=== PATIENT | female | born 1955 | race Two or more races ===

== ENCOUNTER 2016-08-29 09:02 | Outpatient (CLI) | payer OTHER ==
[~2016-08-29 09:02] MED LIST: BEVACIZUMAB IV PRN; CARBOPLATIN 750 MG in NORMAL SALINE 250 ML IV PRN; DIPHENHYDRAMINE HCL 50 MG/ML VIAL IV PRN; FAMOTIDINE INJ/PF 20 MG/2 ML SDV IV PRN; NORMAL SALINE 250 ML IV PRN; NORMAL SALINE IV PRN; ONDANSETRON HCL/PF 16 MG, DEXAMETHASONE SOD PHOSPHATE 10 MG in NORMAL SALINE 50 ML IV PRN; PACLITAXEL SEMI SYNTHETIC IV PRN
[2016-08-29 10:44] VITALS: BP 135/80
== END 2016-08-29 16:30 | disposition home or self-care (01) ==
LOC: II 09:02 → 5TH 09:06 → II 16:30
PROVIDERS: ATTEND Specialist
PROC: 3E03305 Introduction of Other Antineoplastic into Peripheral Vein, Percutaneous Approach (ICD-10-PCS; principal; 2016-08-29)
PROC: 3E033GC Introduction of Other Therapeutic Substance into Peripheral Vein, Percutaneous Approach (ICD-10-PCS; 2016-08-29)
DX: Z51.11 Encounter for antineoplastic chemotherapy (principal); D56.1 Beta thalassemia; D70.1 Agranulocytosis secondary to cancer chemotherapy
CPT/HCPCS: 96413; 96415; 96367; 96375; 96417; J1200; J9045; J2405; J7050; J7040; J9267; S0028; J1100; J9035

== ENCOUNTER 2016-08-31 08:57 | Outpatient (CLI) | payer OTHER ==
[~2016-08-31 08:57] MED LIST changes: -BEVACIZUMAB IV PRN; -CARBOPLATIN 750 MG in NORMAL SALINE 250 ML IV PRN; -DIPHENHYDRAMINE HCL 50 MG/ML VIAL IV PRN; -FAMOTIDINE INJ/PF 20 MG/2 ML SDV IV PRN; -NORMAL SALINE 250 ML IV PRN; -NORMAL SALINE IV PRN; -ONDANSETRON HCL/PF 16 MG, DEXAMETHASONE SOD PHOSPHATE 10 MG in NORMAL SALINE 50 ML IV PRN; -PACLITAXEL SEMI SYNTHETIC IV PRN; +PEGFILGRASTIM INJ 6 MG/0.6 ML DISP.SYRIN SUBCUT PRN
== END 2016-08-31 10:00 | disposition home or self-care (01) ==
LOC: II 08:57 → 5TH 08:57 → II 10:00
PROVIDERS: ATTEND Specialist
PROC: 3E0130M Introduction of Antineoplastic, Monoclonal Antibody, into Subcutaneous Tissue, Percutaneous Approach (ICD-10-PCS; principal; 2016-08-31)
DX: Z51.11 Encounter for antineoplastic chemotherapy (principal); D70.1 Agranulocytosis secondary to cancer chemotherapy; D56.1 Beta thalassemia
CPT/HCPCS: 96372; J2505

== ENCOUNTER → 2016-09-14 | Outpatient (CLI) | payer OTHER | LOC: RAD 17:15 | PROVIDERS: ATTEND Specialist | DX: C56.1 Malignant neoplasm of right ovary (principal) | CPT/HCPCS: 78815; A9552 ==

== ENCOUNTER 2016-09-20 09:38 | Outpatient (CLI) | payer OTHER ==
[~2016-09-20 09:38] MED LIST changes: +BEVACIZUMAB IV PRN; +CARBOPLATIN 750 MG in NORMAL SALINE 250 ML IV PRN; +FAMOTIDINE INJ/PF 20 MG/2 ML SDV IV PRN; +NORMAL SALINE 250 ML IV PRN; +NORMAL SALINE IV PRN; +ONDANSETRON HCL/PF 16 MG, DEXAMETHASONE SOD PHOSPHATE 10 MG in NORMAL SALINE 50 ML IV PRN; +PACLITAXEL SEMI SYNTHETIC IV PRN; -PEGFILGRASTIM INJ 6 MG/0.6 ML DISP.SYRIN SUBCUT PRN
[2016-09-20] MEDS: DIPHENHYDRAMINE HCL 50 MG/ML VIAL IV PRN ×2 (11:00→11:04)
[2016-09-20 13:21] VITALS: BP 133/74
== END 2016-09-20 15:43 | disposition home or self-care (01) ==
LOC: II 09:38 → 5TH 09:41 → II 15:43
PROVIDERS: ATTEND Specialist
PROC: 3E04305 Introduction of Other Antineoplastic into Central Vein, Percutaneous Approach (ICD-10-PCS; principal; 2016-09-20)
PROC: 3E043GC Introduction of Other Therapeutic Substance into Central Vein, Percutaneous Approach (ICD-10-PCS; 2016-09-20)
DX: Z51.11 Encounter for antineoplastic chemotherapy (principal); D70.1 Agranulocytosis secondary to cancer chemotherapy; D56.1 Beta thalassemia
CPT/HCPCS: 96413; 96415; 96367; 96375; 96417; J1200; J9045; J2405; J7050; J7040; J9267; S0028; J1100; J9035

== ENCOUNTER 2016-09-21 14:43 | Outpatient (CLI) | payer OTHER ==
[~2016-09-21 14:43] MED LIST changes: -BEVACIZUMAB IV PRN; -CARBOPLATIN 750 MG in NORMAL SALINE 250 ML IV PRN; -FAMOTIDINE INJ/PF 20 MG/2 ML SDV IV PRN; -NORMAL SALINE 250 ML IV PRN; -NORMAL SALINE IV PRN; -ONDANSETRON HCL/PF 16 MG, DEXAMETHASONE SOD PHOSPHATE 10 MG in NORMAL SALINE 50 ML IV PRN; -PACLITAXEL SEMI SYNTHETIC IV PRN; +PEGFILGRASTIM INJ 6 MG/0.6 ML DISP.SYRIN SUBCUT PRN
== END 2016-09-21 15:08 | disposition home or self-care (01) ==
LOC: II 14:43 → 5TH 14:46 → II 15:08
PROVIDERS: ATTEND Specialist
PROC: 3E0130M Introduction of Antineoplastic, Monoclonal Antibody, into Subcutaneous Tissue, Percutaneous Approach (ICD-10-PCS; principal; 2016-09-21)
DX: Z51.11 Encounter for antineoplastic chemotherapy (principal); D70.1 Agranulocytosis secondary to cancer chemotherapy; D56.1 Beta thalassemia
CPT/HCPCS: 96372; J2505

== ENCOUNTER 2016-10-11 08:59 | Outpatient (CLI) | payer OTHER ==
[~2016-10-11 08:59] MED LIST changes: +BEVACIZUMAB IV PRN; +CARBOPLATIN 750 MG in NORMAL SALINE 250 ML IV PRN; +DIPHENHYDRAMINE HCL 50 MG/ML VIAL IV PRN; +FAMOTIDINE INJ/PF 20 MG/2 ML SDV IV PRN; +NORMAL SALINE 250 ML IV PRN; +NORMAL SALINE IV PRN; +ONDANSETRON HCL/PF 16 MG, DEXAMETHASONE SOD PHOSPHATE 10 MG in NORMAL SALINE 50 ML IV PRN; +PACLITAXEL SEMI SYNTHETIC IV PRN; -PEGFILGRASTIM INJ 6 MG/0.6 ML DISP.SYRIN SUBCUT PRN
[2016-10-11 09:31] VITALS: BP 116/65
== END 2016-10-11 15:21 | disposition home or self-care (01) ==
LOC: II 08:59 → 5TH 09:00 → II 15:21
PROVIDERS: ATTEND Specialist
DX: Z51.11 Encounter for antineoplastic chemotherapy (principal); D56.1 Beta thalassemia; D70.1 Agranulocytosis secondary to cancer chemotherapy
CPT/HCPCS: 96413; 96415; 96367; 96375; J1200; J9045; J2405; J7050; J7040; J9267; S0028; J1100; J9035

== ENCOUNTER 2016-10-12 14:31 | Outpatient (CLI) | payer OTHER ==
[~2016-10-12 14:31] MED LIST changes: -BEVACIZUMAB IV PRN; -CARBOPLATIN 750 MG in NORMAL SALINE 250 ML IV PRN; -DIPHENHYDRAMINE HCL 50 MG/ML VIAL IV PRN; -FAMOTIDINE INJ/PF 20 MG/2 ML SDV IV PRN; -NORMAL SALINE 250 ML IV PRN; -NORMAL SALINE IV PRN; -ONDANSETRON HCL/PF 16 MG, DEXAMETHASONE SOD PHOSPHATE 10 MG in NORMAL SALINE 50 ML IV PRN; -PACLITAXEL SEMI SYNTHETIC IV PRN; +PEGFILGRASTIM INJ 6 MG/0.6 ML DISP.SYRIN SUBCUT PRN
== END 2016-10-12 14:46 | disposition home or self-care (01) ==
LOC: II 14:31 → 5TH 14:33 → II 14:46
PROVIDERS: ATTEND Specialist
PROC: 3E023GC Introduction of Other Therapeutic Substance into Muscle, Percutaneous Approach (ICD-10-PCS; principal; 2016-10-12)
DX: D56.1 Beta thalassemia (principal); Z51.11 Encounter for antineoplastic chemotherapy; D70.1 Agranulocytosis secondary to cancer chemotherapy
CPT/HCPCS: 96372; J2505

== ENCOUNTER → 2016-10-16 | Outpatient (CLI) | payer OTHER | LOC: RAD 09:55 | PROVIDERS: ATTEND Specialist | DX: C56.1 Malignant neoplasm of right ovary (principal) | CPT/HCPCS: 71260; 74177 ==

== ENCOUNTER 2016-11-02 13:56 | Outpatient (CLI) | payer OTHER | END 2016-11-02 14:17 | disposition home or self-care (01) | LOC: II 13:56 → 5TH 14:08 → II 14:17 | PROVIDERS: ATTEND Specialist | PROC: 3E023GC Introduction of Other Therapeutic Substance into Muscle, Percutaneous Approach (ICD-10-PCS; principal; 2016-11-02) | DX: D56.1 Beta thalassemia (principal); Z51.11 Encounter for antineoplastic chemotherapy; D70.1 Agranulocytosis secondary to cancer chemotherapy | CPT/HCPCS: 96372; J2505 ==

== ENCOUNTER 2016-11-22 09:14 | Outpatient (CLI) | payer OTHER ==
[~2016-11-22 09:14] MED LIST changes: +BEVACIZUMAB IV PRN; +CARBOPLATIN 750 MG in NORMAL SALINE 250 ML IV PRN; +DIPHENHYDRAMINE HCL 50 MG/ML VIAL IV PRN; +FAMOTIDINE INJ/PF 20 MG/2 ML SDV IV PRN; +NORMAL SALINE 250 ML IV PRN; +NORMAL SALINE IV PRN; +ONDANSETRON HCL/PF 16 MG, DEXAMETHASONE SOD PHOSPHATE 10 MG in NORMAL SALINE 50 ML IV PRN; +PACLITAXEL SEMI SYNTHETIC IV PRN; -PEGFILGRASTIM INJ 6 MG/0.6 ML DISP.SYRIN SUBCUT PRN
[2016-11-22 11:08] VITALS: BP 105/66
== END 2016-11-22 14:50 | disposition home or self-care (01) ==
LOC: II 09:14 → 5TH 09:18 → II 14:50
PROVIDERS: ATTEND Specialist
PROC: 3E04305 Introduction of Other Antineoplastic into Central Vein, Percutaneous Approach (ICD-10-PCS; principal; 2016-11-22)
PROC: 3E043GC Introduction of Other Therapeutic Substance into Central Vein, Percutaneous Approach (ICD-10-PCS; 2016-11-22)
DX: D56.1 Beta thalassemia (principal); Z51.11 Encounter for antineoplastic chemotherapy; D70.1 Agranulocytosis secondary to cancer chemotherapy
CPT/HCPCS: 96413; 96367; 96375; 96417; J1200; J9045; J2405; J7050; J7040; J9267; S0028; J1100; J9035; 96415

== ENCOUNTER 2016-11-23 14:29 | Outpatient (CLI) | payer OTHER ==
[~2016-11-23 14:29] MED LIST changes: -BEVACIZUMAB IV PRN; -CARBOPLATIN 750 MG in NORMAL SALINE 250 ML IV PRN; -DIPHENHYDRAMINE HCL 50 MG/ML VIAL IV PRN; -FAMOTIDINE INJ/PF 20 MG/2 ML SDV IV PRN; -NORMAL SALINE 250 ML IV PRN; -NORMAL SALINE IV PRN; -ONDANSETRON HCL/PF 16 MG, DEXAMETHASONE SOD PHOSPHATE 10 MG in NORMAL SALINE 50 ML IV PRN; -PACLITAXEL SEMI SYNTHETIC IV PRN; +PEGFILGRASTIM INJ 6 MG/0.6 ML DISP.SYRIN SUBCUT PRN
== END 2016-11-23 15:12 | disposition home or self-care (01) ==
LOC: II 14:29 → 5TH 14:38 → II 15:12
PROVIDERS: ATTEND Specialist
PROC: 3E023GC Introduction of Other Therapeutic Substance into Muscle, Percutaneous Approach (ICD-10-PCS; principal; 2016-11-23)
DX: D56.1 Beta thalassemia (principal); Z51.11 Encounter for antineoplastic chemotherapy; D70.1 Agranulocytosis secondary to cancer chemotherapy
CPT/HCPCS: 96372; J2505

== ENCOUNTER → 2016-12-07 | Outpatient (CLI) | payer OTHER | LOC: OD 14:35 | PROVIDERS: ATTEND Specialist | DX: C56.1 Malignant neoplasm of right ovary (principal) | CPT/HCPCS: 87040 ==

== ENCOUNTER 2016-12-13 09:14 | Outpatient (CLI) | payer OTHER ==
[~2016-12-13 09:14] MED LIST changes: +BEVACIZUMAB IV PRN; +CARBOPLATIN 750 MG in NORMAL SALINE 250 ML IV PRN; +DIPHENHYDRAMINE HCL 50 MG/ML VIAL IV PRN; +FAMOTIDINE INJ/PF 20 MG/2 ML SDV IV PRN; +NORMAL SALINE 250 ML IV PRN; +NORMAL SALINE IV PRN; +ONDANSETRON HCL/PF 16 MG, DEXAMETHASONE SOD PHOSPHATE 10 MG in NORMAL SALINE 50 ML IV PRN; +PACLITAXEL SEMI SYNTHETIC IV PRN; -PEGFILGRASTIM INJ 6 MG/0.6 ML DISP.SYRIN SUBCUT PRN
[2016-12-13 09:54] VITALS: BP 108/65
== END 2016-12-13 16:26 | disposition home or self-care (01) ==
LOC: II 09:14 → 5TH 09:15 → II 16:26
PROVIDERS: ATTEND Specialist
PROC: 3E04305 Introduction of Other Antineoplastic into Central Vein, Percutaneous Approach (ICD-10-PCS; principal; 2016-12-13)
PROC: 3E043GC Introduction of Other Therapeutic Substance into Central Vein, Percutaneous Approach (ICD-10-PCS; 2016-12-13)
PROC: 3E0430M Introduction of Antineoplastic, Monoclonal Antibody, into Central Vein, Percutaneous Approach (ICD-10-PCS; 2016-12-13)
DX: Z51.11 Encounter for antineoplastic chemotherapy (principal); D56.1 Beta thalassemia; D70.1 Agranulocytosis secondary to cancer chemotherapy
CPT/HCPCS: 96413; 96415; 96367; 96375; 96417; J1200; J9045; J2405; J7050; J7040; J9267; S0028; J1100; J9035

== ENCOUNTER → 2016-12-30 | Outpatient (CLI) | payer OTHER | LOC: RAD 17:36 | PROVIDERS: ATTEND Specialist | DX: C56.1 Malignant neoplasm of right ovary (principal) | CPT/HCPCS: 78815; A9552 ==

== ENCOUNTER 2017-01-18 08:42 | Outpatient (CLI) | payer OTHER ==
[~2017-01-18 08:42] MED LIST changes: -CARBOPLATIN 750 MG in NORMAL SALINE 250 ML IV PRN; +[UNRECOGNIZED DRUG - OTHER] IV PRN
[2017-01-18 09:10] VITALS: BP 122/80
== END 2017-01-18 14:02 | disposition home or self-care (01) ==
LOC: II 08:42 → 5TH 08:47 → II 14:02
PROVIDERS: ATTEND Specialist
PROC: 3E04305 Introduction of Other Antineoplastic into Central Vein, Percutaneous Approach (ICD-10-PCS; principal; 2017-01-18)
PROC: 3E0430M Introduction of Antineoplastic, Monoclonal Antibody, into Central Vein, Percutaneous Approach (ICD-10-PCS; 2017-01-18)
PROC: 3E043GC Introduction of Other Therapeutic Substance into Central Vein, Percutaneous Approach (ICD-10-PCS; 2017-01-18)
DX: Z51.11 Encounter for antineoplastic chemotherapy (principal); C56.1 Malignant neoplasm of right ovary
CPT/HCPCS: 96413; 96415; 96367; 96375; 96361; 96417; J9267 ×2; J1200; J2405; J7040; S0028; J1100; J9035; 96360

== ENCOUNTER 2017-02-15 09:39 | Outpatient (CLI) | payer OTHER ==
[~2017-02-15 09:39] MED LIST changes: +RANITIDINE 50 MG/2 ML IV PRN
[2017-02-15 09:59] VITALS: BP 112/68
== END 2017-02-15 14:28 | disposition home or self-care (01) ==
LOC: II 09:39 → 5TH 09:54 → II 14:28
PROVIDERS: ATTEND Specialist
PROC: 3E0430M Introduction of Antineoplastic, Monoclonal Antibody, into Central Vein, Percutaneous Approach (ICD-10-PCS; principal; 2017-02-15)
PROC: 3E043GC Introduction of Other Therapeutic Substance into Central Vein, Percutaneous Approach (ICD-10-PCS; 2017-02-15)
PROC: 3E04305 Introduction of Other Antineoplastic into Central Vein, Percutaneous Approach (ICD-10-PCS; 2017-02-15)
DX: Z51.11 Encounter for antineoplastic chemotherapy (principal); C56.1 Malignant neoplasm of right ovary
CPT/HCPCS: 96413; 96415; 96367; 96375; J9267 ×2; J1200; J2405; J7040; S0028; J1100; J9035; 96417

== ENCOUNTER 2017-03-15 11:06 | Outpatient (CLI) | payer OTHER ==
[~2017-03-15 11:06] MED LIST changes: -RANITIDINE 50 MG/2 ML IV PRN; -[UNRECOGNIZED DRUG - OTHER] IV PRN
[2017-03-15 11:38] VITALS: BP 133/82
== END 2017-03-15 15:05 | disposition home or self-care (01) ==
LOC: II 11:06 → 5TH 11:07 → II 15:05
PROVIDERS: ATTEND Internal Medicine
PROC: 3E0430M Introduction of Antineoplastic, Monoclonal Antibody, into Central Vein, Percutaneous Approach (ICD-10-PCS; principal; 2017-03-15)
PROC: 3E04305 Introduction of Other Antineoplastic into Central Vein, Percutaneous Approach (ICD-10-PCS; 2017-03-15)
PROC: 3E043GC Introduction of Other Therapeutic Substance into Central Vein, Percutaneous Approach (ICD-10-PCS; 2017-03-15)
DX: Z51.11 Encounter for antineoplastic chemotherapy (principal); C56.1 Malignant neoplasm of right ovary
CPT/HCPCS: 96413; 96415; 96367; 96375; J1200; J2405; J7040; J9267; S0028; J1100; J9035; 96417

== ENCOUNTER → 2017-04-05 | Outpatient (CLI) | payer OTHER ==
--- NOTE | 2017-04-05 14:18 | RADIOLOGY REPORT (SQ) ---
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 Images reviewed with lung, soft tissue and bone windows. Reconstructed coronal and sagittal MPR images reviewed. All images stored on PACS. All CT scanners at this facility use dose modulation, iterative reconstruction, and/or weight based d osing when appropriate to reduce radiation dose to as low as reasonably achievable (ALARA). [facility]: Dose Right [facility]: CareDose [facility]: Dose Right [facility]: Teradose 4D [facility]: [employer] CONTRAST TYPE AND DOSE: contrast/concentration: Isovue 370.00 mg/ml; Total Contrast Delivered: 79.0 ml; Total Saline Delivered: 68.0 ml RENAL FUNCTION: BUN 15, creatinine 0.67 RADIATION DOSE: . LIMITATIONS: None. FINDINGS: LUNGS AND PLEURA: No consolidation or pleural effusions. There is a single 2.9 mm nodule in the left lower lobe. This is new from 2015. The was possibly obscured by the pleural effusion on CT performed in September. Metastatic disease is most likely. HILAR AND MEDIASTINAL STRUCTURES: Prominent paraesophageal node is present this is increased in size from prior study it measures 3.4 cm in diameter. It appears similar to the study in July 2016. HEART AND VASCULAR STRUCTURES: No aneurysm or dissection. No central pulmonary emboli. No pericardi al effusion. HARDWARE: Febkkv-A-Fyft is in place. UPPER ABDOMEN: There is a large peritoneal implant now noted in the left mid abdomen. This measures 4.9 cm in diameter. There are 2 lesions along the right lobe of the liver which have increased in si ze from most recent study. THYROID AND OTHER SOFT TISSUES: No masses. No adenopathy. BONES: No significant finding. OTHER: No other significant finding. IMPRESSION: 1. 2.9 mm nodule in the left lower lobe suspicious for metastatic disease. 2. There is a 3.4 cm periesophageal node which is increased in size from prior study. It is similar appearance to the exam done in July 2016. 3. The perihepatic peroneal implants are increasing in size. TECHNICAL DOCUMENTATION: JOB ID: [id number] Quality ID # 436: Final reports with documentation of one or more dose reduction techniques (e.g., Au tomated exposure control, adjustment of the mA and/or kV according to patient size, use of iterative reconstruction technique) 2010 [employer]- All Rights Reserved
--- NOTE | 2017-04-05 14:23 | RADIOLOGY REPORT (SQ) ---
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 No oral contrast. Images reviewed with lung, soft tissue, and bone windows. Reconstructed coronal and sagittal MPR images reviewed. Delayed images for evaluation of the urinary system also acquired. All images stored on PACS. All CT scanners at this facility use dose modulation, iterative reconstruction, and/or weight based d osing when appropriate to reduce radiation dose to as low as reasonably achievable (ALARA). [facility]: Dose Right [facility]: CareDose [facility]: Dose Right [facility]: Teradose 4D [facility]: [employer] CONTRAST TYPE AND DOSE: 79 mL Isovue 370 RENAL FUNCTION: BUN 15, creatinine 0.67 RADIATION DOSE: Up-to-date CT equipment and radiation dose reduction techniques were employed. CTDIv ol: 5.9 - 7.9 mGy. DLP: 1069 mGy-cm.. LIMITATIONS: None. FINDINGS: LOWER CHEST: Small pulmonary nodules again noted metastatic disease cannot be excluded. T his measures 2.9 mm in size. LIVER: The perihepatic lesions along the right lobe have slightly increased in size. SPLEEN: Normal size. No focal lesions. PANCREAS: No masses. No significant calcifications. No adjacent inflammation or peripancreatic fluid collections. Pancreatic duct not dilated. GALLBLADDER: No identified stones by CT criteria. No inflammatory changes to suggest cholecystitis. ADRENAL GLANDS: No significant masses or asymmetry. RIGHT KIDNEY AND URETER: No solid masses. No significant calcifications. No hydronephrosis or hyd roureter. LEFT KIDNEY AND URETER: No solid masses. No significant calcifications. No hydronephrosis or hydr oureter. AORTA AND VESSELS: No aneurysm. No dissection. Renal arteries, SMA, celiac without stenosis. RETROPERITONEUM: There are small periaortic and retroperitoneal nodes. None are pathologic based on size criteria. BOWEL AND PERITONEAL CAVITY: There is a 4.9 cm peritoneal implant in the left mid abdomen. This is s ignificantly increased in size from prior study. The perineum planned along the inferior margin the liver is grossly stable in size. APPENDIX: Not visualized. PELVIS: Complex multiloculated mass in the pelvis is measured 10.7 by 9.5 cm in size this is grossly stable. There is a 2 cm mass in the left lower quadrant which is increased in size since prior study and probably represents peritoneal implant. ABDOMINAL WALL: No masses. No hernias. BONES: No significant or acute findings. OTHER: No other significant finding. IMPRESSION: Increasing peritoneal implants as described. The large complex pelvic mass is grossly s table in size. TECHNICAL DOCUMENTATION: JOB ID: [id number] Quality ID # 436: Final reports with documentation of one or more dose reduction techniques (e.g., Au tomated exposure control, adjustment of the mA and/or kV according to patient size, use of iterative reconstruction technique) 2010 [employer]- All Rights Reserved
== END ==
LOC: RAD 12:51
PROVIDERS: ATTEND Internal Medicine
DX: C56.1 Malignant neoplasm of right ovary (principal); R91.1 Solitary pulmonary nodule
CPT/HCPCS: 71260; 74177

== ENCOUNTER → 2017-04-18 | Outpatient (CLI) | payer SELFPAY ==
--- NOTE | 2017-04-18 19:27 | XCELERA REPORT ---
[address] [address] Transthoracic Echocardiogram Report Name: NAURADHA DARLING Age: 61 yrs Gender: Female : 1955 Patient Status: Outpatient Patient Location: Study Date: 04/18/2017 02:12 PM Height: 61 in Weight: 160 lb BSA: 1.7 m2 Procedure: A complete two-dimensional transthoracic echocardiogram was performed (2D, M-mode, spectral and color flow Doppler). The study was technically difficult with many images being suboptimal in quality. Reason For Study: ANTINEOPLASTIC CHEMOTHERAPY Ordering Physician: ARLEEN GARZA Performed By: Ermelinda Cedeno Interpretation Summary The study was technically difficult with many images being suboptimal in quality. The left ventricular ejection fraction is normal. There is normal left ventricular wall thickness. The left ventricle is grossly normal size. Doppler measurements suggest impaired left ventricular relaxation, which is associated with grade I/IV or mild diastolic dysfunction Wall motion cannot be accurately commented on, but no definite regional wall motion abnormalities noted. The right ventricle appears to be hypertrophied The right ventricle is mild to moderately dilated. The left atrial size is normal. The right atrium is normal in size There is a trace amount of mitral regurgitation There is no mitral valve stenosis. No aortic regurgitation is present. There is no aortic valve stenosis There is a trace or physiologic amount of tricuspid regurgitation Tricuspid regurgitation jet envelope not well defined to measure RV systolic pressure accurately. The aortic root is not well visualized. The inferior vena cava appeared normal and decreased < 50% with respiration (RAP 10-15 mmHg) There is no pericardial effusion. MMode/2D Measurements & Calculations RVDd: 3.8 cm LVIDd: 5.7 cm FS: 34.2 % Ao root diam: 2.8 cm IVSd: 0.50 cm LVIDs: 3.7 cm EDV(Teich): 158.0 ml LVPWd: 0.54 cm ESV(Teich): 59.3 ml Ao root area: 6.2 cm2 EF(Teich): 62.5 % Doppler Measurements & Calculations MV E max almaz: MV dec slope: Ao V2 max: LV V1 max P.5 cm/sec 153.7 cm/sec 3.8 mmHg MV A max almaz: 246.3 cm/sec2 Ao max PG: LV V1 max: 69.9 cm/sec MV dec time: 9.5 mmHg 97.5 cm/sec MV E/A: 0.87 0.25 sec PA V2 max: PI end-d almaz: 75.0 cm/sec 110.0 cm/sec PA max P.3 mmHg Left Ventricle The left ventricle is grossly normal size. There is normal left ventricular wall thickness. The left ventricular ejection fraction is normal. Doppler measurements suggest impaired left ventricular relaxation, which is associated with grade I/IV or mild diastolic dysfunction. Wall motion cannot be accurately commented on, but no definite regional wall motion abnormalities noted. Right Ventricle The right ventricle is mild to moderately dilated. The right ventricle appears to be hypertrophied. The right ventricular systolic function is normal. Atria The right atrium is normal in size. The left atrial size is normal. Interarterial septum not well visualized and not well dopplered. Cannot comment on ASD/PFO presence. Mitral Valve The mitral valve is grossly normal. There is no mitral valve stenosis. There is a trace amount of mitral regurgitation. Aortic Valve The aortic valve is grossly normal. There is no aortic valve stenosis. No aortic regurgitation is present. Tricuspid Valve The tricuspid valve is not well visualized secondary to technical limitations. There is no tricuspid stenosis. There is a trace or physiologic amount of tricuspid regurgitation. Tricuspid regurgitation jet envelope not well defined to measure RV systolic pressure accurately. Pulmonic Valve The pulmonic valve is not well visualized. Great Vessels The aortic root is not well visualized. The inferior vena cava appeared normal and decreased < 50% with respiration (RAP 10-15 mmHg). Effusions There is no pericardial effusion. : ARLEEN GARZA > Noah Spangler
== END ==
LOC: SP 14:06
PROVIDERS: ATTEND Internal Medicine
DX: Z51.11 Encounter for antineoplastic chemotherapy (principal)
CPT/HCPCS: 93306

== ENCOUNTER 2017-04-26 09:19 | Outpatient (CLI) | payer OTHER ==
[~2017-04-26 09:19] MED LIST changes: -BEVACIZUMAB IV PRN; +DEXTROSE 5% IV PRN; +DEXTROSE 5%-WATER 250 ML IV PRN; -DIPHENHYDRAMINE HCL 50 MG/ML VIAL IV PRN; -FAMOTIDINE INJ/PF 20 MG/2 ML SDV IV PRN; +FOSAPREPITANT DIMEGLUMINE 150 MG in NORMAL SALINE 150 ML IV PRN; -NORMAL SALINE 250 ML IV PRN; -NORMAL SALINE IV PRN; -PACLITAXEL SEMI SYNTHETIC IV PRN; +WATER IV PRN; +[UNRECOGNIZED DRUG - OTHER] IV PRN
[2017-04-26 09:36] VITALS: BP 104/62
== END 2017-04-26 12:15 | disposition home or self-care (01) ==
LOC: II 09:19 → 5TH 09:23 → II 12:15
PROVIDERS: ATTEND Internal Medicine
PROC: 3E04305 Introduction of Other Antineoplastic into Central Vein, Percutaneous Approach (ICD-10-PCS; principal; 2017-04-26)
PROC: 3E043GC Introduction of Other Therapeutic Substance into Central Vein, Percutaneous Approach (ICD-10-PCS; 2017-04-26)
DX: Z51.11 Encounter for antineoplastic chemotherapy (principal); C56.1 Malignant neoplasm of right ovary
CPT/HCPCS: 96413; 96365; 96366; 96523; J2405; J7060; J1100; J1453; Q2050; 96367

== ENCOUNTER 2017-05-03 09:30 | Outpatient (CLI) | payer OTHER ==
[2017-05-03 10:24] VITALS: BP 112/76
== END 2017-05-03 12:17 | disposition home or self-care (01) ==
LOC: II 09:30 → 5TH 09:31 → II 12:17
PROVIDERS: ATTEND Internal Medicine
PROC: 3E04305 Introduction of Other Antineoplastic into Central Vein, Percutaneous Approach (ICD-10-PCS; principal; 2017-05-03)
PROC: 3E043GC Introduction of Other Therapeutic Substance into Central Vein, Percutaneous Approach (ICD-10-PCS; 2017-05-03)
DX: Z51.11 Encounter for antineoplastic chemotherapy (principal); C56.1 Malignant neoplasm of right ovary
CPT/HCPCS: 96413; 96367; 96375; J2405; J7060; J1100; J1453; Q2050; 96365; 96523

== ENCOUNTER 2017-05-17 11:27 | Outpatient (CLI) | payer OTHER ==
[~2017-05-17 11:27] MED LIST changes: +BEVACIZUMAB IV PRN; -DEXTROSE 5%-WATER 250 ML IV PRN; +NORMAL SALINE 250 ML IV PRN; +NORMAL SALINE IV PRN
[2017-05-17 11:46] VITALS: BP 118/70
[2017-05-17] MEDS: DEXTROSE 5%-WATER 250 ML IV PRN ×2 (12:13→13:03)
== END 2017-05-17 14:28 | disposition home or self-care (01) ==
LOC: II 11:27 → 5TH 11:35 → II 14:28
PROVIDERS: ATTEND Internal Medicine
PROC: 3E0430M Introduction of Antineoplastic, Monoclonal Antibody, into Central Vein, Percutaneous Approach (ICD-10-PCS; principal; 2017-05-17)
PROC: 3E04305 Introduction of Other Antineoplastic into Central Vein, Percutaneous Approach (ICD-10-PCS; 2017-05-17)
PROC: 3E043GC Introduction of Other Therapeutic Substance into Central Vein, Percutaneous Approach (ICD-10-PCS; 2017-05-17)
DX: Z51.11 Encounter for antineoplastic chemotherapy (principal); C56.1 Malignant neoplasm of right ovary
CPT/HCPCS: 96413; 96415; 96367; 96375; J2405; J7060; J1100; J9035; J1453; Q2050; 96417

== ENCOUNTER 2017-05-24 08:06 | Outpatient (CLI) | payer OTHER ==
[~2017-05-24 08:06] MED LIST changes: -BEVACIZUMAB IV PRN; +DEXTROSE 5%-WATER 250 ML IV PRN; -NORMAL SALINE 250 ML IV PRN; -NORMAL SALINE IV PRN
[2017-05-24 09:00] VITALS: BP 126/64
[2017-05-24 09:03] LABS: ABSOLUTE MONOCYTES (AUTO) 0.1 10^3/uL (0.1-1.4); HEMATOCRIT 32.1 % (36.0-47.0); HEMOGLOBIN 10.9 g/dL (12.0-15.5); HGB HCT DIFFERENCE 0.6; LYMPHOCYTES % (AUTO) 19.1 % (13-45); MEAN CORPUSCULAR HGB CONC 33.8 g/dL (32.0-36.0); MEAN CORPUSCULAR VOLUME 83 fl (80-97); MONOCYTES % (AUTO) 1.7 % (3-13); RED BLOOD COUNT 3.88 10^6/uL (3.72-5.28); RED CELL DISTRIBUTION WIDTH 16.9 % (11.5-14.0); SEGMENTED NEUTROPHILS % (AUTO) 79.2 % (42-78); WHITE BLOOD COUNT 5.1 10^3/uL (4.0-10.5)
== END 2017-05-24 12:10 | disposition home or self-care (01) ==
LOC: II 08:06 → 5TH 08:24 → II 12:10
PROVIDERS: ATTEND Internal Medicine
PROC: 3E04305 Introduction of Other Antineoplastic into Central Vein, Percutaneous Approach (ICD-10-PCS; principal; 2017-05-24)
PROC: 3E043GC Introduction of Other Therapeutic Substance into Central Vein, Percutaneous Approach (ICD-10-PCS; 2017-05-24)
DX: Z51.11 Encounter for antineoplastic chemotherapy (principal); C56.1 Malignant neoplasm of right ovary
CPT/HCPCS: 96413; 96367; 96375; 36415; 85025; J2405; J7060; J1100; J1453; Q2050

== ENCOUNTER 2017-05-31 08:01 | Outpatient (CLI) | payer OTHER ==
[2017-05-31 08:24] VITALS: BP 125/75
[2017-05-31 08:45] LABS: ABSOLUTE LYMPHOCYTES (AUTO) 0.9 10^3/uL (0.5-4.7); ABSOLUTE MONOCYTES (AUTO) 0.1 10^3/uL (0.1-1.4); ABSOLUTE NEUT (AUTO) 5.6 10^3/uL (1.7-8.2); BASOPHILS % (AUTO) 0.1 % (0-2); HEMATOCRIT 31.5 % (36.0-47.0); HEMOGLOBIN 10.5 g/dL (12.0-15.5); LYMPHOCYTES % (AUTO) 13.2 % (13-45); MEAN CORPUSCULAR HEMOGLOBIN 27.7 pg (27.0-33.4); MEAN CORPUSCULAR HGB CONC 33.5 g/dL (32.0-36.0); MEAN CORPUSCULAR VOLUME 83 fl (80-97); MONOCYTES % (AUTO) 1.1 % (3-13); RED BLOOD COUNT 3.81 10^6/uL (3.72-5.28); RED CELL DISTRIBUTION WIDTH 17.6 % (11.5-14.0); SEGMENTED NEUTROPHILS % (AUTO) 85.6 % (42-78); WHITE BLOOD COUNT 6.6 10^3/uL (4.0-10.5)
== END 2017-05-31 11:30 | disposition home or self-care (01) ==
LOC: II 08:01 → 5TH 08:02 → II 11:30
PROVIDERS: ATTEND Internal Medicine Hematology & Oncology
PROC: 3E04305 Introduction of Other Antineoplastic into Central Vein, Percutaneous Approach (ICD-10-PCS; principal; 2017-05-31)
PROC: 3E043GC Introduction of Other Therapeutic Substance into Central Vein, Percutaneous Approach (ICD-10-PCS; 2017-05-31)
DX: Z51.11 Encounter for antineoplastic chemotherapy (principal); C56.1 Malignant neoplasm of right ovary; N83.8 Other noninflammatory disorders of ovary, fallopian tube and broad ligament; G89.3 Neoplasm related pain (acute) (chronic)
CPT/HCPCS: 36415; 85025; 96413; 96367; 96523; J2405; J7060; J1100; J1453; Q2050

== ENCOUNTER 2017-06-14 11:02 | Outpatient (CLI) | payer OTHER ==
[~2017-06-14 11:02] MED LIST changes: +BEVACIZUMAB IV PRN; +NORMAL SALINE 250 ML IV PRN; +NORMAL SALINE IV PRN; +[UNRECOGNIZED DRUG - OTHER] IV PRN
[2017-06-14 11:25] VITALS: BP 113/65
[2017-06-14 12:20] LABS: APPEARANCE,URINE CLOUDY; BILIRUBIN,URINE NEGATIVE (NEGATIVE); GLUCOSE, URINE NEGATIVE (NEGATIVE); KETONES,URINE NEGATIVE (NEGATIVE); LEUKOCYTE ESTERASE,URINE SMALL (NEGATIVE); NITRITE,URINE NEGATIVE (NEGATIVE); PROTEIN,URINE NEGATIVE (NEGATIVE); URINE SPECIFIC GRAVITY 1.023
== END 2017-06-14 14:35 | disposition home or self-care (01) ==
LOC: II 11:02 → 5TH 11:05 → II 14:35
PROVIDERS: ATTEND Internal Medicine
PROC: 3E0430M Introduction of Antineoplastic, Monoclonal Antibody, into Central Vein, Percutaneous Approach (ICD-10-PCS; principal; 2017-06-14)
PROC: 3E04305 Introduction of Other Antineoplastic into Central Vein, Percutaneous Approach (ICD-10-PCS; 2017-06-14)
PROC: 3E043GC Introduction of Other Therapeutic Substance into Central Vein, Percutaneous Approach (ICD-10-PCS; 2017-06-14)
DX: Z51.11 Encounter for antineoplastic chemotherapy (principal); C56.1 Malignant neoplasm of right ovary
CPT/HCPCS: 81001; 96413; 96415; 96367; 96375; J2405; J7060; J1100; J9035; J1453; Q2050; 96417

== ENCOUNTER → 2017-07-08 | Outpatient (CLI) | payer OTHER ==
--- NOTE | 2017-07-08 12:06 | RADIOLOGY REPORT (SQ) ---
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 Images reviewed with lung, soft tissue and bone windows. Reconstructed coronal and sagittal MPR images reviewed. All images stored on PACS. All CT scanners at this facility use dose modulation, iterative reconstruction, and/or weight based d osing when appropriate to reduce radiation dose to as low as reasonably achievable (ALARA). [facility]: Dose Right [facility]: CareDose [facility]: Dose Right [facility]: Teradose 4D [facility]: [employer] CONTRAST TYPE AND DOSE: See separate report of the same date. RENAL FUNCTION: See separate report of the same date. RADIATION DOSE: . LIMITATIONS: None. FINDINGS: LUNGS AND PLEURA: Tiny 2 mm nodule in the left lower lobe on image 108. No new nodules. No effusions. HILAR AND MEDIASTINAL STRUCTURES: 3 cm lesion between the esophagus and the left ventricle measures - 11 HU, does not enhance, and was not hypermetabolic on the PET in December 2016. 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 HEART AND VASCULAR STRUCTURES: No aneurysm or dissection. No central pulmonary emboli. No pericardi al effusion. HARDWARE: Right-sided port with tip in the SVC. UPPER ABDOMEN: See separate report of the CT of the abdomen. THYROID AND OTHER SOFT TISSUES: No masses. No adenopathy. BONES: No significant finding. OTHER: No other significant finding. IMPRESSION: Stable appearance of the chest. TECHNICAL DOCUMENTATION: JOB ID: [id number] Quality ID # 436: Final reports with documentation of one or more dose reduction techniques (e.g., Au tomated exposure control, adjustment of the mA and/or kV according to patient size, use of iterative reconstruction technique) 2010 [employer]- All Rights Reserved
--- NOTE | 2017-07-08 12:11 | RADIOLOGY REPORT (SQ) ---
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 No oral contrast. Images reviewed with lung, soft tissue, and bone windows. Reconstructed coronal and sagittal MPR images reviewed. Delayed images for evaluation of the urinary system also acquired. All images stored on PACS. All CT scanners at this facility use dose modulation, iterative reconstruction, and/or weight based d osing when appropriate to reduce radiation dose to as low as reasonably achievable (ALARA). [facility]: Dose Right [facility]: CareDose [facility]: Dose Right [facility]: Teradose 4D [facility]: [employer] CONTRAST TYPE AND DOSE: contrast/concentration: Isovue 370.00 mg/ml; Total Contrast Delivered: 74.0 ml; Total Saline Delivered: 66.0 ml RENAL FUNCTION: BUN 11 creatinine 0.6 RADIATION DOSE: Up-to-date CT equipment and radiation dose reduction techniques were employed. CTDIv ol: 5.2 - 7.4 mGy. DLP: 991 mGy-cm.. LIMITATIONS: None. FINDINGS: LOWER CHEST: See separate report of the CT of the chest. LIVER: Peritoneal implants surrounding the liver capsule subdiaphragmatic and around the medial segme nt of the left lobe are not significantly changed. SPLEEN: Normal size. No focal lesions. PANCREAS: No masses. No significant calcifications. No adjacent inflammation or peripancreatic fluid collections. Pancreatic duct not dilated. GALLBLADDER: No identified stones by CT criteria. No inflammatory changes to suggest cholecystitis. ADRENAL GLANDS: No significant masses or asymmetry. RIGHT KIDNEY AND URETER: No solid masses. No significant calcifications. No hydronephrosis or hyd roureter. LEFT KIDNEY AND URETER: No solid masses. No significant calcifications. No hydronephrosis or hydr oureter. AORTA AND VESSELS: No aneurysm. No dissection. Renal arteries, SMA, celiac without stenosis. RETROPERITONEUM: Subcentimeter retroperitoneal nodes, stable. BOWEL AND PERITONEAL CAVITY: Interval increase in size of peritoneal implants, the largest in the lef t upper quadrant near the midline measuring 5.0 x 7.9 cm, previously 4.4 x 4.6 cm. APPENDIX: Not visualized. PELVIS: Complex cystic and solid pelvic mass is not significantly changed. Left lower quadrant perit vickers implant is not significantly changed. ABDOMINAL WALL: No masses. No hernias. BONES: No acute findings. OTHER: No other significant finding. IMPRESSION: Interval increase in size of peritoneal implants. No significant ascites. TECHNICAL DOCUMENTATION: JOB ID: [id number] Quality ID # 436: Final reports with documentation of one or more dose reduction techniques (e.g., Au tomated exposure control, adjustment of the mA and/or kV according to patient size, use of iterative reconstruction technique) 2010 [employer]- All Rights Reserved
== END ==
LOC: RAD 09:47
PROVIDERS: ATTEND Internal Medicine Hematology & Oncology
DX: C56.1 Malignant neoplasm of right ovary (principal)
CPT/HCPCS: 71260; 74177

== ENCOUNTER 2017-07-12 11:29 | Outpatient (CLI) | payer OTHER ==
[~2017-07-12 11:29] MED LIST changes: +AMPHOTERICIN B LIPOSOME IV PRN; +[UNRECOGNIZED DRUG - OTHER] IV PRN; +[UNRECOGNIZED DRUG - OTHER] IV PRN; -[UNRECOGNIZED DRUG - OTHER] IV PRN; -[UNRECOGNIZED DRUG - OTHER] IV PRN
[2017-07-12 13:10] VITALS: BP 128/72
== END 2017-07-12 14:38 | disposition home or self-care (01) ==
LOC: II 11:29 → 5TH 11:33 → II 14:38
PROVIDERS: ATTEND Internal Medicine Hematology & Oncology
PROC: 3E0330M Introduction of Antineoplastic, Monoclonal Antibody, into Peripheral Vein, Percutaneous Approach (ICD-10-PCS; principal; 2017-07-12)
PROC: 3E03305 Introduction of Other Antineoplastic into Peripheral Vein, Percutaneous Approach (ICD-10-PCS; 2017-07-12)
PROC: 3E033GC Introduction of Other Therapeutic Substance into Peripheral Vein, Percutaneous Approach (ICD-10-PCS; 2017-07-12)
DX: Z51.11 Encounter for antineoplastic chemotherapy (principal); C56.1 Malignant neoplasm of right ovary; N83.8 Other noninflammatory disorders of ovary, fallopian tube and broad ligament; G89.3 Neoplasm related pain (acute) (chronic)
CPT/HCPCS: 96413; 96415; 96367; 96375; J2405; J7060; J1100; J9035; J1453; Q2050; 96417; J0289

== ENCOUNTER 2017-07-26 09:06 | Outpatient (CLI) | payer OTHER ==
[~2017-07-26 09:06] MED LIST changes: -AMPHOTERICIN B LIPOSOME IV PRN; -DEXTROSE 5% IV PRN; -DEXTROSE 5%-WATER 250 ML IV PRN; -FOSAPREPITANT DIMEGLUMINE 150 MG in NORMAL SALINE 150 ML IV PRN; -ONDANSETRON HCL/PF 16 MG, DEXAMETHASONE SOD PHOSPHATE 10 MG in NORMAL SALINE 50 ML IV PRN; -WATER IV PRN; -[UNRECOGNIZED DRUG - OTHER] IV PRN; -[UNRECOGNIZED DRUG - OTHER] IV PRN
[2017-07-26 09:38] LABS: ABSOLUTE BASOPHILS # (AUTO) 0.1 10^3/uL (0.0-0.2); ABSOLUTE EOSINOPHILS # (AUTO) 0.2 10^3/uL (0.0-0.6); ABSOLUTE LYMPHOCYTES (AUTO) 1.9 10^3/uL (0.5-4.7); ABSOLUTE MONOCYTES (AUTO) 0.2 10^3/uL (0.1-1.4); ABSOLUTE NEUT (AUTO) 3.2 10^3/uL (1.7-8.2); HEMATOCRIT 27.6 % (36.0-47.0); HEMOGLOBIN 9.2 g/dL (12.0-15.5); LYMPHOCYTES % (AUTO) 33.7 % (13-45); MEAN CORPUSCULAR HEMOGLOBIN 28.5 pg (27.0-33.4); MEAN CORPUSCULAR HGB CONC 33.4 g/dL (32.0-36.0); MEAN CORPUSCULAR VOLUME 85 fl (80-97); MONOCYTES % (AUTO) 3.6 % (3-13); RED BLOOD COUNT 3.23 10^6/uL (3.72-5.28); RED CELL DISTRIBUTION WIDTH 16.4 % (11.5-14.0); SEGMENTED NEUTROPHILS % (AUTO) 57.7 % (42-78); WHITE BLOOD COUNT 5.5 10^3/uL (4.0-10.5)
[2017-07-26 10:24] LABS: APPEARANCE,URINE SLIGHTLY-CLOUDY; BILIRUBIN,URINE NEGATIVE (NEGATIVE); GLUCOSE, URINE NEGATIVE (NEGATIVE); KETONES,URINE NEGATIVE (NEGATIVE); LEUKOCYTE ESTERASE,URINE SMALL (NEGATIVE); NITRITE,URINE NEGATIVE (NEGATIVE); PROTEIN,URINE NEGATIVE (NEGATIVE); URINE SPECIFIC GRAVITY 1.013; UROBILINOGEN,URINE NEGATIVE mg/dL (<2.0)
[2017-07-26 10:31] LABS: BACTERIA,URINE 3+ /HPF; WBC,URINE TOO NUMEROUS TO CNT /HPF
[2017-07-26 10:43] LABS: ALANINE AMINOTRANSFERASE 21 U/L (9-52); ALBUMIN 3.3 g/dL (3.5-5.0); ALKALINE PHOSPHATASE 72 U/L (38-126); ANION GAP 9 (5-19); ASPARTATE AMINO TRANSFERASE 22 U/L (14-36); BILIRUBIN,DIRECT 0.3 mg/dL (0.0-0.4); BILIRUBIN,TOTAL 0.5 mg/dL (0.2-1.3); BLOOD UREA NITROGEN 11 mg/dL (7-20); CALCIUM 8.9 mg/dL (8.4-10.2); CARBON DIOXIDE 30 mmol/L (22-30); CHLORIDE 106 mmol/L (98-107); CREATININE RESULT 0.82 mg/dL (0.52-1.25); GLUCOSE 91 mg/dL (75-110); POTASSIUM 4.2 mmol/L (3.6-5.0); SODIUM 144.5 mmol/L (137-145); TOTAL PROTEIN 5.8 g/dL (6.3-8.2)
[2017-07-26 10:52] VITALS: BP 122/70
== END 2017-07-26 13:00 | disposition home or self-care (01) ==
LOC: II 09:06 → 5TH 09:07 → II 13:00
PROVIDERS: ATTEND Internal Medicine
PROC: 3E0430M Introduction of Antineoplastic, Monoclonal Antibody, into Central Vein, Percutaneous Approach (ICD-10-PCS; principal; 2017-07-26)
DX: Z51.11 Encounter for antineoplastic chemotherapy (principal); C56.1 Malignant neoplasm of right ovary; N83.8 Other noninflammatory disorders of ovary, fallopian tube and broad ligament; G89.3 Neoplasm related pain (acute) (chronic)
CPT/HCPCS: 36415; 86304; 85025; 80053; 81001; 96413; J9035; 96523

== ENCOUNTER 2017-08-16 10:15 | Outpatient (CLI) | payer OTHER ==
[~2017-08-16 10:15] MED LIST changes: +DEXTROSE 5% IV PRN; +DEXTROSE 5%-WATER 250 ML IV PRN; +FOSAPREPITANT DIMEGLUMINE 150 MG in NORMAL SALINE 150 ML IV PRN; +ONDANSETRON HCL/PF 16 MG, DEXAMETHASONE SOD PHOSPHATE 10 MG in NORMAL SALINE 50 ML IV PRN; +WATER IV PRN; +[UNRECOGNIZED DRUG - OTHER] IV PRN
[2017-08-16 13:44] VITALS: BP 133/76
== END 2017-08-16 13:59 | disposition home or self-care (01) ==
LOC: II 10:15 → 5TH 10:37 → II 13:59
PROVIDERS: ATTEND Internal Medicine Hematology & Oncology
DX: C56.1 Malignant neoplasm of right ovary (principal); Z51.11 Encounter for antineoplastic chemotherapy
CPT/HCPCS: 96413; 96415; 96367; 96375; J2405; J7060; J1100; J9035; J1453; Q2050

== ENCOUNTER 2017-09-06 08:58 | Outpatient (CLI) | payer OTHER ==
[~2017-09-06 08:58] MED LIST changes: -DEXTROSE 5% IV PRN; -DEXTROSE 5%-WATER 250 ML IV PRN; -FOSAPREPITANT DIMEGLUMINE 150 MG in NORMAL SALINE 150 ML IV PRN; -ONDANSETRON HCL/PF 16 MG, DEXAMETHASONE SOD PHOSPHATE 10 MG in NORMAL SALINE 50 ML IV PRN; -WATER IV PRN; -[UNRECOGNIZED DRUG - OTHER] IV PRN
[2017-09-06 09:48] VITALS: BP 129/77
[2017-09-06 10:19] LABS: ALANINE AMINOTRANSFERASE 11 U/L (9-52); ALBUMIN 3.5 g/dL (3.5-5.0); ALKALINE PHOSPHATASE 60 U/L (38-126); ANION GAP 7 (5-19); ASPARTATE AMINO TRANSFERASE 28 U/L (14-36); BILIRUBIN,DIRECT 0.2 mg/dL (0.0-0.4); BILIRUBIN,TOTAL 0.2 mg/dL (0.2-1.3); BLOOD UREA NITROGEN 15 mg/dL (7-20); CALCIUM 9.3 mg/dL (8.4-10.2); CARBON DIOXIDE 29 mmol/L (22-30); CHLORIDE 103 mmol/L (98-107); GLUCOSE 87 mg/dL (75-110); POTASSIUM 4.6 mmol/L (3.6-5.0); SODIUM 139.3 mmol/L (137-145)
== END 2017-09-06 11:22 | disposition home or self-care (01) ==
LOC: II 08:58 → 5TH 09:04 → II 11:22
PROVIDERS: ATTEND Internal Medicine
PROC: 3E0430M Introduction of Antineoplastic, Monoclonal Antibody, into Central Vein, Percutaneous Approach (ICD-10-PCS; principal; 2017-09-06)
DX: Z51.11 Encounter for antineoplastic chemotherapy (principal); C56.1 Malignant neoplasm of right ovary
CPT/HCPCS: 36415; 86304; 80053; 96413; 96375; J9035

== ENCOUNTER 2017-09-20 10:27 | Outpatient (CLI) | payer OTHER ==
[~2017-09-20 10:27] MED LIST changes: +DEXTROSE 5% IV PRN; +DEXTROSE 5%-WATER 250 ML IV PRN; +ONDANSETRON HCL/PF 16 MG, DEXAMETHASONE SOD PHOSPHATE 10 MG in NORMAL SALINE 50 ML IV PRN; +WATER IV PRN; +[UNRECOGNIZED DRUG - OTHER] IV PRN; +[UNRECOGNIZED DRUG - OTHER] IV PRN
[2017-09-20 10:47] VITALS: BP 134/75
[2017-09-20 10:58] LABS: ALANINE AMINOTRANSFERASE 14 U/L (9-52); ALBUMIN 3.3 g/dL (3.5-5.0); ALKALINE PHOSPHATASE 65 U/L (38-126); ANION GAP 8 (5-19); ASPARTATE AMINO TRANSFERASE 36 U/L (14-36); BILIRUBIN,DIRECT 0.2 mg/dL (0.0-0.4); BILIRUBIN,TOTAL 0.3 mg/dL (0.2-1.3); BLOOD UREA NITROGEN 13 mg/dL (7-20); CALCIUM 9.2 mg/dL (8.4-10.2); CARBON DIOXIDE 28 mmol/L (22-30); CHLORIDE 103 mmol/L (98-107); GLUCOSE 90 mg/dL (75-110); POTASSIUM 4.3 mmol/L (3.6-5.0); SODIUM 138.9 mmol/L (137-145)
== END 2017-09-20 13:22 | disposition home or self-care (01) ==
LOC: II 10:27 → 5TH 10:31 → II 13:22
PROVIDERS: ATTEND Internal Medicine Hematology & Oncology
PROC: 3E04305 Introduction of Other Antineoplastic into Central Vein, Percutaneous Approach (ICD-10-PCS; principal; 2017-09-20)
PROC: 3E0430M Introduction of Antineoplastic, Monoclonal Antibody, into Central Vein, Percutaneous Approach (ICD-10-PCS; 2017-09-20)
PROC: 3E043GC Introduction of Other Therapeutic Substance into Central Vein, Percutaneous Approach (ICD-10-PCS; 2017-09-20)
DX: Z51.11 Encounter for antineoplastic chemotherapy (principal); C56.1 Malignant neoplasm of right ovary
CPT/HCPCS: 36415; 86304; 84443; 80053; 96413; 96415; 96367; 96360; 96361; J2405; J7060; J1100; J9035; Q2050; 96417

== ENCOUNTER → 2017-09-30 | Outpatient (CLI) | payer OTHER ==
--- NOTE | 2017-09-30 12:16 | RADIOLOGY REPORT (SQ) ---
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 Images reviewed with lung, soft tissue and bone windows. Reconstructed coronal a nd sagittal MPR images reviewed. All images stored on PACS. CT scan of the abdomen and pelvis performed with intravenous and with oral contrastusing helical scan edu technique with dynamic intravenous contrast injection. Images reviewed with lung, soft tissue a nd bone windows. Reconstructed coronal and sagittal MPR images reviewed. Delayed images for evaluat ion of the urinary system also acquired and evaluated. All images stored on PACS. All CT scanners at this facility use dose modulation, iterative reconstruction, and/or weight based d osing when appropriate to reduce radiation dose to as low as reasonably achievable (ALARA). [facility]: Dose Right [facility]: CareDose [facility]: Dose Right [facility]: Teradose 4D [facility]: [employer] RADIATION DOSE: CT Rad equipment meets quality standard of care and radiation dose reduction techniq ues were employed. CTDIvol: 5.1 - 7.4 mGy. DLP: 969 mGy-cm. . LIMITATIONS: None. FINDINGS: CHEST: LUNGS AND PLEURA: No opacities, nodules, masses. No pneumothorax. No effusions. HILAR AND MEDIASTINAL STRUCTURES: In the inferior aspect of the left posterior mediastinum, there is a 4.7 x 3.7 cm soft tissue mass abutting the distal aspect of the abdominal aorta and esophagus (was 3.8 x 2.7 cm on 07/08/2017). HEART AND VASCULAR STRUCTURES: No aneurysm or dissection. No central pulmonary emboli. No pericardi al effusion. HARDWARE: Right-sided permanent central line tip superior vena cava THYROID AND OTHER SOFT TISSUES: No masses. No adenopathy. BONES: No significant finding. OTHER: No other significant finding. ABDOMEN AND PELVIS: There is interval development of a moderate amount of ascites in the abdomen and pelvis, with increas ing size of multiple peritoneal implants as follows: New 1 cm nodule along the sub- diaphragmatic surface left lobe liver image 11 3.4 x 2.1 cm peritoneal implant, right lateral margin subdiaphragmatic surface liver (was 3.6 x 1.7 c m on 06/28/2017) 3.1 x 2 cm implant, ventral left lobe liver (unchanged from 06/28/2017) 7 x 6 cm implant right hepatorenal fossa (was 6.4 x 5.4 cm on 07/08/2017) 7.7 x 6 cm implant dorsal aspect distal left transverse colon (was 8 x 5 cm on 07/08/2017) Pelvic cul-de-sac/ left adnexal mass 10.7 x 8.8 cm (was 10 x 8.8 cm on 07/08/2017) LIVER: Normal size. No primary hepatic masses. Liver surface implants as above. No dilated ducts. SPLEEN: Normal size. No focal lesions. PANCREAS: No masses. No significant calcifications. No adjacent inflammation or peripancreatic fluid collections. Pancreatic duct not dilated. GALLBLADDER: No identified stones by CT criteria. No inflammatory changes to suggest cholecystitis. ADRENAL GLANDS: No significant masses or asymmetry. RIGHT KIDNEY AND URETER: No solid masses. No significant calcification. No hydronephrosis or hydroure ter. LEFT KIDNEY AND URETER: No solid masses. No significant calcification. No hydronephrosis or hydrouret er. AORTA AND VESSELS: No aneurysm. No dissection. Renal arteries, SMA, celiac without stenosis. RETROPERITONEUM: No retroperitoneal adenopathy, hemorrhage or masses. BOWEL AND PERITONEAL CAVITY: No masses or inflammatory changes. No free fluid or peritoneal masses. APPENDIX: Normal. ABDOMINAL WALL: No masses. No hernias. PELVIS: Left adnexal/ cul-de-sac mass as above. Uterus unremarkable. Right ovary not well seen. Bl adder unremarkable. BONES: No significant or acute findings. OTHER: No other significant finding. IMPRESSION: Increase in peritoneal implants, new ascites as above. NORMAL CT OF THE ABDOMEN AND PELVIS WITH ORAL AND INTRAVENOUS CONTRAST. TECHNICAL DOCUMENTATION: JOB ID: [id number] Quality ID # 436: Final reports with documentation of one or more dose reduction techniques (e.g., Au tomated exposure control, adjustment of the mA and/or kV according to patient size, use of iterative reconstruction technique) 2010 [employer]- All Rights Reserved
== END ==
LOC: RAD 09:33
PROVIDERS: ATTEND Internal Medicine Hematology & Oncology
DX: C56.1 Malignant neoplasm of right ovary (principal)
CPT/HCPCS: 71260; 74177

== ENCOUNTER 2017-10-04 08:54 | Outpatient (CLI) | payer OTHER ==
[~2017-10-04 08:54] MED LIST changes: -DEXTROSE 5% IV PRN; -DEXTROSE 5%-WATER 250 ML IV PRN; -ONDANSETRON HCL/PF 16 MG, DEXAMETHASONE SOD PHOSPHATE 10 MG in NORMAL SALINE 50 ML IV PRN; -WATER IV PRN; -[UNRECOGNIZED DRUG - OTHER] IV PRN; -[UNRECOGNIZED DRUG - OTHER] IV PRN
[2017-10-04 09:37] LABS: ABSOLUTE BASOPHILS # (AUTO) 0.1 10^3/uL (0.0-0.2); ABSOLUTE EOSINOPHILS # (AUTO) 0.2 10^3/uL (0.0-0.6); ABSOLUTE LYMPHOCYTES (AUTO) 1.8 10^3/uL (0.5-4.7); ABSOLUTE MONOCYTES (AUTO) 0.2 10^3/uL (0.1-1.4); ABSOLUTE NEUT (AUTO) 2.6 10^3/uL (1.7-8.2); BASOPHILS % (AUTO) 1.4 % (0-2); EOSINOPHILS % (AUTO) 3.2 % (0-6); HEMATOCRIT 25.3 % (36.0-47.0); HEMOGLOBIN 8.5 g/dL (12.0-15.5); LYMPHOCYTES % (AUTO) 37.6 % (13-45); MEAN CORPUSCULAR HEMOGLOBIN 28.3 pg (27.0-33.4); MEAN CORPUSCULAR HGB CONC 33.8 g/dL (32.0-36.0); MEAN CORPUSCULAR VOLUME 84 fl (80-97); MONOCYTES % (AUTO) 3.2 % (3-13); PLATELET COUNT 162 10^3/uL (150-450); RED BLOOD COUNT 3.02 10^6/uL (3.72-5.28); RED CELL DISTRIBUTION WIDTH 18.3 % (11.5-14.0); SEGMENTED NEUTROPHILS % (AUTO) 54.6 % (42-78); TOTAL CELLS COUNTED % (AUTO) 100 %; WHITE BLOOD COUNT 4.8 10^3/uL (4.0-10.5)
[2017-10-04 09:43] LABS: APPEARANCE,URINE CLOUDY; BILIRUBIN,URINE NEGATIVE (NEGATIVE); GLUCOSE, URINE NEGATIVE (NEGATIVE); KETONES,URINE NEGATIVE (NEGATIVE); LEUKOCYTE ESTERASE,URINE TRACE (NEGATIVE); NITRITE,URINE NEGATIVE (NEGATIVE); PROTEIN,URINE 30 mg/dL (NEGATIVE); URINE SPECIFIC GRAVITY 1.021
[2017-10-04 09:47] LABS: COLOR,URINE DARK YELLOW
[2017-10-04 10:08] LABS: ALANINE AMINOTRANSFERASE 18 U/L (9-52); ALBUMIN 3.2 g/dL (3.5-5.0); ALKALINE PHOSPHATASE 55 U/L (38-126); ANION GAP 5 (5-19); ASPARTATE AMINO TRANSFERASE 38 U/L (14-36); BILIRUBIN,DIRECT 0.3 mg/dL (0.0-0.4); BILIRUBIN,TOTAL 0.4 mg/dL (0.2-1.3); BLOOD UREA NITROGEN 15 mg/dL (7-20); CARBON DIOXIDE 29 mmol/L (22-30); CHLORIDE 104 mmol/L (98-107); GLUCOSE 95 mg/dL (75-110); POTASSIUM 4.5 mmol/L (3.6-5.0); TOTAL PROTEIN 5.8 g/dL (6.3-8.2)
[2017-10-04 10:57] VITALS: BP 128/83
== END 2017-10-04 13:50 | disposition home or self-care (01) ==
LOC: II 08:54 → 5TH 09:07 → II 13:50
PROVIDERS: ATTEND Internal Medicine Hematology & Oncology
PROC: 3E0430M Introduction of Antineoplastic, Monoclonal Antibody, into Central Vein, Percutaneous Approach (ICD-10-PCS; principal; 2017-10-04)
DX: Z51.11 Encounter for antineoplastic chemotherapy (principal); C56.1 Malignant neoplasm of right ovary
CPT/HCPCS: 36415; 85025; 80053; 81001; 96413; 96374; J9035 ×2

== ENCOUNTER → 2017-10-22 | Outpatient (CLI) | payer OTHER ==
--- NOTE | 2017-10-22 15:00 | RADIOLOGY REPORT (SQ) ---
EXAM DESCRIPTION: MRI HEAD COMBO COMPLETED DATE/TIME: 10/22/2017 1:47 pm REASON FOR STUDY: OVARIAN CA (C56.1) C56.1 MALIGNANT NEOPLASM OF RIGHT OVARY COMPARISON: None. TECHNIQUE: Multiplanar imaging includes noncontrasted T1, T2, FLAIR, diffusion with ADC map and post gadolinium contrast T1 sequences. Images stored on PACS. CONTRAST TYPE AND DOSE: 10 mL Multihance. RENAL FUNCTION: GFR > 60. LIMITATIONS: None. FINDINGS: ANATOMY: Empty sella, with the pituitary gland flattened against the floor of the sella tu rcica an anatomic variant. CSF SPACES: Normal in size and contour. No hemorrhage. CEREBRUM: Sulci and gyri normal in size and contour. Normal white matter signal on FLAIR imaging. No evidence of hemorrhage, mass, or extraaxial fluid collection. No abnormal enhancement post contrast. POSTERIOR FOSSA: No signal alteration. No hemorrhage. No edema, masses, or mass effect. Internal calvin tory canals, cerebellopontine angles, mastoids normal. No enhancing lesions. No abnormal enhancement post contrast. DIFFUSION IMAGING: Negative for acute or subacute infarction. ORBITS: No masses. Globes normal. PARANASAL SINUSES: Minimal dependently layering fluid in the sphenoid sinus. OTHER: No other significant finding. IMPRESSION: No MRI evidence of brain parenchymal metastatic disease given history of ovarian cancer EVIDENCE OF ACUTE STROKE: NO. TECHNICAL DOCUMENTATION: JOB ID: [id number] [employer]- All Rights Reserved Reading location - IP/workstation name: [email or web address]
== END ==
LOC: RAD 12:31
PROVIDERS: ATTEND Internal Medicine Hematology & Oncology
DX: C56.1 Malignant neoplasm of right ovary (principal)
CPT/HCPCS: 70553; A9577

== ENCOUNTER 2017-11-01 10:54 | Day surgery (SDC) | payer OTHER ==
[2017-11-01 12:16] LABS: ABSOLUTE BASOPHILS # (AUTO) 0.1 10^3/uL (0.0-0.2); ABSOLUTE EOSINOPHILS # (AUTO) 0.2 10^3/uL (0.0-0.6); ABSOLUTE LYMPHOCYTES (AUTO) 1.3 10^3/uL (0.5-4.7); ABSOLUTE MONOCYTES (AUTO) 1.1 10^3/uL (0.1-1.4); ABSOLUTE NEUT (AUTO) 6.1 10^3/uL (1.7-8.2); BASOPHILS % (AUTO) 0.9 % (0-2); EOSINOPHILS % (AUTO) 2.7 % (0-6); HEMATOCRIT 28.5 % (36.0-47.0); HEMOGLOBIN 9.3 g/dL (12.0-15.5); LYMPHOCYTES % (AUTO) 14.2 % (13-45); MEAN CORPUSCULAR HEMOGLOBIN 27.9 pg (27.0-33.4); MEAN CORPUSCULAR HGB CONC 32.7 g/dL (32.0-36.0); MEAN CORPUSCULAR VOLUME 85 fl (80-97); MONOCYTES % (AUTO) 12.5 % (3-13); PLATELET COUNT 286 10^3/uL (150-450); RED BLOOD COUNT 3.34 10^6/uL (3.72-5.28); RED CELL DISTRIBUTION WIDTH 22.1 % (11.5-14.0); SEGMENTED NEUTROPHILS % (AUTO) 69.7 % (42-78); TOTAL CELLS COUNTED % (AUTO) 100 %; WHITE BLOOD COUNT 8.8 10^3/uL (4.0-10.5)
[2017-11-01 12:22] LABS: INTERNATIONAL RATION (INR) 1.04; PROTHROMBIN TIME 14.3 SEC (11.4-15.4)
[2017-11-01 12:23] LABS: PARTIAL THROMBOPLASTIN TIME 30.2 SEC (23.5-35.8)
[2017-11-01 12:36] LABS: ALANINE AMINOTRANSFERASE 24 U/L (9-52); ALBUMIN 2.8 g/dL (3.5-5.0); ALKALINE PHOSPHATASE 77 U/L (38-126); ANION GAP 8 (5-19); ASPARTATE AMINO TRANSFERASE 70 U/L (14-36); BILIRUBIN,DIRECT 0.5 mg/dL (0.0-0.4); BILIRUBIN,TOTAL 0.7 mg/dL (0.2-1.3); BLOOD UREA NITROGEN 21 mg/dL (7-20); CALCIUM 8.6 mg/dL (8.4-10.2); CARBON DIOXIDE 24 mmol/L (22-30); CHLORIDE 106 mmol/L (98-107); GLUCOSE 92 mg/dL (75-110); POTASSIUM 4.9 mmol/L (3.6-5.0); SODIUM 137.9 mmol/L (137-145); TOTAL PROTEIN 5.7 g/dL (6.3-8.2)
[2017-11-01] MEDS ORDERED: LIDOCAINE 1% INJ-PF (10 MG/ML) 30 ML SDV ONE (13:01)
--- NOTE | 2017-11-01 15:07 | RADIOLOGY REPORT (SQ) ---
EXAM DESCRIPTION: U/S ABD PARACENTESIS COMPLETED DATE/TIME: 11/01/2017 2:12 pm REASON FOR STUDY: ASCITES COMPARISON None. LIMITATIONS: None. PROCEDURE: After obtaining informed consent, the patient was brought to the ultrasound suite. The p rocedure was performed with the patient on a gurney. Ultrasound was used to identify a prominent poc ket of ascites in the right lower quadrant. An appropriate access site was selected. The patient wa s prepped and draped in usual sterile fashion. The access site was anesthetized with 10 mL 1% lidoc florence. A [facility] needle was advanced into the fluid. After aspiration of fluid the needle, t he catheter was advanced off the needle into the fluid. A total of 6,000 mL of serosanguineous fluid was removed. The patient tolerated the procedure well left the department in satisfactory condition. IMPRESSION: Successful ultrasound-guided paracentesis COMMENT: Patient medication list reviewed: Yes- Quality ID# 130:Eligible professional attests to doc umenting in the medical record they obtained, updated, or reviewed the patient's current medications. Quality ID #76: The patient was prepped and draped using maximum sterile barrier technique including cap, mask, sterile gown, sterile gloves, a large sterile sheet, hand hygiene, and 2% Chlorhexidine fo r cutaneous antisepsis. When ultrasound is used, sterile ultrasound techniques are followed requiring sterile gel and sterile probes. Quality ID #145: Final reports for procedures using fluoroscopy that document radiation exposure moi suyapa, or exposure time and number of fluorographic images (if radiation exposure indices are not avail able) TECHNICAL DOCUMENTATION: JOB ID: [id number] [employer]- All Rights Reserved Reading location - IP/workstation name: [facility]
[2017-11-01 16:17] VITALS: BP 108/77
== END 2017-11-01 15:55 | disposition home or self-care (01) ==
LOC: RAD 10:54
PROVIDERS: ATTEND Internal Medicine Hematology & Oncology
PROC: 0W9G3ZZ Drainage of Peritoneal Cavity, Percutaneous Approach (ICD-10-PCS; principal; 2017-11-01)
DX: C56.1 Malignant neoplasm of right ovary (principal); R18.8 Other ascites; G62.0 Drug-induced polyneuropathy; G89.3 Neoplasm related pain (acute) (chronic); N83.8 Other noninflammatory disorders of ovary, fallopian tube and broad ligament; E11.9 Type 2 diabetes mellitus without complications; Z79.899 Other long term (current) drug therapy; Z79.891 Long term (current) use of opiate analgesic
CPT/HCPCS: 36415; 85025; 85610; 85730; 80053; 88162; 88342 ×2; 88341 ×2; 88305 ×2; 88313 ×2; 49083; J3490

== ENCOUNTER 2017-11-12 11:47 | Outpatient (CLI) | payer OTHER ==
[2017-11-12] MEDS ORDERED: NORMAL SALINE 1000 ML 1,000 ML IV PRN (12:07)
[2017-11-12 12:39] VITALS: BP 118/79
[2017-11-12] MEDS ORDERED: CEFTRIAXONE INJ 250 MG VIAL IM ONE (13:00)
[2017-11-12] MEDS ORDERED: ONDANSETRON HCL INJ/PF 4 MG/2 ML SDV IV ONE (13:00)
[2017-11-12] MEDS ORDERED: LIDOCAINE HCL 1% INJ (FOR 250 MG VIAL) INJ ONE (13:00)
== END 2017-11-12 13:35 | disposition home or self-care (01) ==
LOC: II 11:47 → 5TH 11:53 → II 13:35
PROVIDERS: ATTEND Internal Medicine Hematology & Oncology
PROC: 3E02329 Introduction of Other Anti-infective into Muscle, Percutaneous Approach (ICD-10-PCS; principal; 2017-11-12)
PROC: 3E043GC Introduction of Other Therapeutic Substance into Central Vein, Percutaneous Approach (ICD-10-PCS; 2017-11-12)
PROC: 3E0337Z Introduction of Electrolytic and Water Balance Substance into Peripheral Vein, Percutaneous Approach (ICD-10-PCS; 2017-11-12)
DX: E86.0 Dehydration (principal); R11.0 Nausea
CPT/HCPCS: 96372; 96375; 96360; J3490; J2405; J0696; 96361; 96374

== ENCOUNTER 2017-11-17 09:51 | Inpatient (IN) | payer OTHER ==
[2017-11-17] MEDS: NORMAL SALINE 1000 ML 1,000 ML IV PRN (10:26)
--- NOTE | 2017-11-17 10:29 | ER Document Report ---
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 Had ascites drained 2 weeks ago, currently on p.o. chemotherapy medication. Presents today with increased swelling of the abdomen and difficulty in breathing, and difficulty in swallowing. Also having loss of appetite. Has not eaten anything pop for the last few days. She was on hospice care. Denies any fever chills. Terminally ill. On and off confusion REVIEW OF SYSTEMS: Not possible to obtain at this point ALL OTHER SYSTEMS REVIEWED AND NEGATIVE. PHYSICAL EXAMINATION: GENERAL: Cachexia of malignancy. HEAD: Atraumatic, normocephalic. EYES: Pupils equal round and reactive to light, extraocular movements intact, anicteric ENT: Nares patent, oropharynx clear without exudates. Moist mucous membranes. NECK: Normal range of motion, supple without lymphadenopathy LUNGS: Bilaterally decreased breath sounds HEART: Regular rate and rhythm without murmurs ABDOMEN: Distended, horseshoe dullness, distant bowel sounds tenderness on palpation diffusely.. Female : deferred Musculoskeletal: Wasting of the musculoskeletal muscle noted NEUROLOGICAL: Cranial nerves grossly intact. Normal speech, normal gait. Normal sensory, motor exams PSYCH: Normal mood, normal affect. SKIN: Icteric thinning of the skin noted Dictation was performed using [employer] voice recognition software history of present complain TRAVEL OUTSIDE OF THE [place] IN LAST 30 DAYS: No - HPI Patient complains to provider of: Dictated above Onset: Last week Onset/Duration: Persistent Quality of pain: Dull Severity: Moderate Pain Level: 3 - Related Data Allergies/Adverse Reactions: No Known Allergies Allergy (Verified 11/01/17 12:14) Past Medical History - General Information source: Patient, Relative - Social History Smoking Status: Never Smoker Cigarette use (# per day): No Chew tobacco use (# tins/day): No Smoking Education Provided: No Frequency of alcohol use: None Drug Abuse: None Lives with: Family Family History: Reviewed & Not Pertinent, Other - Past Medical History Cardiac Medical History: Denies: Hx Coronary Artery Disease, Hx Heart Attack, Hx Hypertension Pulmonary Medical History: Denies: Hx Asthma, Hx Bronchitis, Hx COPD, Hx Pneumonia Neurological Medical History: Denies: Hx Cerebrovascular Accident, Hx Seizures Endocrine Medical History: Reports: Hx Diabetes Mellitus Type 2 Malignancy Medical History: Reports: Hx Ovarian Cancer Musculoskeltal Medical History: Denies Hx Arthritis Past Surgical History: Reports: Hx Orthopedic Surgery - R foot; R knee - Immunizations Hx Diphtheria, Pertussis, Tetanus Vaccination: Yes Review of Systems - Review of Systems -: Yes ROS unobtainable due to patient's medical condition Physical Exam - Vital signs Vitals: Temp Pulse Resp BP Pulse Ox 97.9 F 111 H 16 92/62 L 98 11/17/17 09:59 11/17/17 09:59 11/17/17 09:59 11/17/17 09:59 11/17/17 09:59 Course - Re-evaluation Re-evalutation: 11/17/17 15:45 Initially hospitalist said that they are not going to admit therefore transfer center at [facility] was called and the case was discussed. Subsequently hospitalist team and their mind and made the patient DNR and currently being admitted here in the hospital. - Vital Signs Vital signs: Temp Pulse Resp BP Pulse Ox 99.1 F 104 H 18 92/67 L 99 11/17/17 23:32 11/17/17 23:32 11/17/17 23:32 11/17/17 23:32 11/17/17 23:32 - Laboratory Result Diagrams: 11/17/17 10:23 11/18/17 00:30 Laboratory results interpreted by me: 11/17/17 11/17/17 11/17/17 10:23 10:23 10:23 WBC 15.7 H RBC 3.54 L Hgb 10.1 L Hct 31.7 L RDW 24.0 H Sodium 131.0 L Potassium 7.2 H* Carbon Dioxide 16 L BUN 62 H Creatinine 3.13 H Est GFR ( Amer) 18 L Est GFR (Non-Af Amer) 15 L AST 91 H Ammonia < 8.7 L Total Protein 5.6 L Albumin 2.7 L - Diagnostic Test Radiology reviewed: Reports reviewed - Abdominal series as well as chest x-ray reported by radiologist was reviewed Procedures - Paracentesis Paracenteses Time completed: 14:00 Consent obtained: Yes Paracentesis pre-procedure: Sterile PPE donned, Betadine prep applied, Chloraprep applied, Sterile drapes applied Anesthetic type: 2% Lidocaine mL's of anesthetic: 10 Amount/type of drainage: 6-1/2 L Number of attempts: 1 Ultrasound guided: No Complications: No Notes: 11/17/17 15:47 Blood-tinged serosanguineous fluid was obtained without any complications. Critical Care Note - Critical Care Note Total time excluding time spent on procedures (mins): 60 Comments: Management of h yperkalemia, ascites. Discharge - Discharge Clinical Impression: Hyperkalemia Malignant neoplasm metastatic to ovary Qualifiers: Laterality: unspecified laterality Qualified Code(s): C79.60 - Secondary malignant neoplasm of unspecified ovary Ascites Qualifiers: Ascites type: malignant Qualified Code(s): R18.0 - Malignant ascites Disposition: ADMITTED INPATIENT Admitting Provider: Hospitalist
--- NOTE | 2017-11-17 10:45 | RADIOLOGY REPORT (SQ) ---
EXAM DESCRIPTION: CHEST SINGLE VIEW COMPLETED DATE/TIME: 11/17/2017 10:33 am REASON FOR STUDY: Pleural effusion COMPARISON: CT chest 09/30/2017 EXAM PARAMETERS: NUMBER OF VIEWS: One view. TECHNIQUE: Single frontal radiographic view of the chest acquired. RADIATION DOSE: NA LIMITATIONS: None. FINDINGS: LUNGS AND PLEURA: Retrocardiac opacity appears on CT to represent a small loculated fluid collection. No opacities. . MEDIASTINUM AND HILAR STRUCTURES: No masses. Contour normal. HEART AND VASCULAR STRUCTURES: Heart normal in size. Normal vasculature. BONES: No acute findings. HARDWARE: Venous access catheter. OTHER: No other significant finding. IMPRESSION: Stable appearance from the CT scan. Small loculated central fluid collection on the lef t in the pleural space. TECHNICAL DOCUMENTATION: JOB ID: [id number] [employer]- All Rights Reserved Reading location - IP/workstation name: [email or web address]
[2017-11-17] MEDS ORDERED: FENTANYL CITRATE INJ/PF 100 MCG/2 ML AMPUL IV ONE ×2 (12:00→13:15)
[2017-11-17] MEDS ORDERED: METOCLOPRAMIDE HCL INJ/PF 10 MG/2 ML SDV IV ONE (12:00)
--- NOTE | 2017-11-17 12:41 | RADIOLOGY REPORT (SQ) ---
EXAM DESCRIPTION: ABDOMEN 2 VIEWS COMPLETED DATE/TIME: 11/17/2017 12:31 pm REASON FOR STUDY: Abdominal pain COMPARISON: None. NUMBER OF VIEWS: Two views. TECHNIQUE: Supine and erect/decubitus radiographic images of the abdomen acquired. LIMITATIONS: None. FINDINGS: FREE AIR: None. No abnormal gas collections. LUNG BASES: Likely hiatal hernia. BOWEL GAS PATTERN: Nonobstructive pattern. No dilated loops or air fluid levels. CALCIFICATIONS: No suspicious calcifications. SOFT TISSUES: No gross mass or suggestion of organomegaly. HARDWARE: None in the abdomen. BONES: No acute fracture. No worrisome bone lesions. OTHER: No other significant finding. IMPRESSION: NO RADIOGRAPHIC EVIDENCE FOR ACUTE ABDOMINAL DISEASE. TECHNICAL DOCUMENTATION: JOB ID: [id number] [employer]- All Rights Reserved Reading location - IP/workstation name: [email or web address]
[2017-11-17 14:00] LABS: HEMATOCRIT 31.7 % (36.0-47.0); HEMOGLOBIN 10.1 g/dL (12.0-15.5); MEAN CORPUSCULAR HEMOGLOBIN 28.7 pg (27.0-33.4); MEAN CORPUSCULAR HGB CONC 32.1 g/dL (32.0-36.0); PLATELET COUNT 198 10^3/uL (150-450); RED BLOOD COUNT 3.54 10^6/uL (3.72-5.28); WHITE BLOOD COUNT 15.7 10^3/uL (4.0-10.5)
[2017-11-17 14:10] LABS: MEAN CORPUSCULAR VOLUME 89 fl (80-97)
[2017-11-17 14:17] LABS: ALANINE AMINOTRANSFERASE 22 U/L (9-52); ALBUMIN 2.7 g/dL (3.5-5.0); ALKALINE PHOSPHATASE 120 U/L (38-126); ANION GAP 15 (5-19); ASPARTATE AMINO TRANSFERASE 91 U/L (14-36); BILIRUBIN,DIRECT 0.4 mg/dL (0.0-0.4); BILIRUBIN,TOTAL 0.6 mg/dL (0.2-1.3); BLOOD UREA NITROGEN 62 mg/dL (7-20); CALCIUM 8.8 mg/dL (8.4-10.2); CARBON DIOXIDE 16 mmol/L (22-30); CHLORIDE 100 mmol/L (98-107); GLUCOSE 86 mg/dL (75-110); TOTAL PROTEIN 5.6 g/dL (6.3-8.2)
[2017-11-17 14:19] LABS: POTASSIUM 7.2 mmol/L (3.6-5.0)
[2017-11-17] MEDS ORDERED: INSULIN REG, HUMAN 100 UNIT/ML 3 ML VIAL (PYX) IV ONE ×2 (14:27→18:37)
[2017-11-17] MEDS ORDERED: DEXTROSE 50%-WATER 25 GM/50 ML DISP.SYRIN IV ONE ×2 (14:27→18:36)
[2017-11-17] MEDS ORDERED: CALCIUM GLUCONATE 1000 MG/10 ML INJ IV ONE (14:29)
[2017-11-17] MEDS ORDERED: OXYCODONE-ACETAMINOPHEN 5-325 MG TABLET PO PRN ×2 (15:49→16:00)
[2017-11-17] MEDS ORDERED: ACETAMINOPHEN 325 MG TABLET PO PRN (15:49)
[2017-11-17] MEDS ORDERED: ONDANSETRON HCL INJ/PF 4 MG/2 ML SDV IV PRN (15:49)
[2017-11-17] MEDS ORDERED: NORMAL SALINE 1000 ML 1,000 ML IV PRN (15:49)
[2017-11-17] MEDS ORDERED: LORAZEPAM INJ 2 MG/1 ML VIAL IV PRN (16:00)
[2017-11-17] MEDS ORDERED: CEFTRIAXONE 1 GM/D5W RTU 1 GM/50 ML RTUPB IV SCH (16:00)
--- NOTE | 2017-11-17 16:21 | EKG REPORT ---
SEVERITY:- ABNORMAL ECG - SINUS TACHYCARDIA LEFT ANTERIOR FASCICULAR BLOCK : Confirmed by: Noah Spangler 17-Nov-2017 16:20:38
[2017-11-17] MEDS ORDERED: FENTANYL 50 MCG/HR PATCH.TD72 TD SCH (17:00)
[2017-11-17] MEDS ORDERED: CALCIUM GLUCONATE 2,222 MG in DEXTROSE 5%-WATER 100 ML IV ONE (17:30)
[2017-11-17] MEDS ORDERED: CEFTRIAXONE SODIUM 1,000 MG in NORMAL SALINE 100 ML IV SCH (18:00)
[2017-11-17] MEDS ORDERED: SODIUM POLYSTYRENE SULFONATE 15 GM/60 ML PO ONE (18:06)
--- NOTE | 2017-11-17 18:07 | PDOC H&P ---
History of Present Illness Admission Date/PCP: November 17, 2017 Patient complains of: Stomach pain, nausea and vomiting and poor appetite History of Present Illness: ANURADHA DARLING is a 62 year old female Is a female who was brought into emergency room by family members and complains of generalized abdominal pain, nausea, vomiting and poor appetite. Patient states that she had been seeing her regular doctor in [place]. She complained of lower abdominal pain and accordingly she was told that he related to old C-sections. Then a year ago she came to this facility and was diagnosed with stage IV ovarian cancer. She had been follow-up with Dr. Gerard. More recently she had been visited by hospice and she was to let them know about her thoughts pertaining current management. Currently patient is awaiting for a cancer pill and is to arrive via mail. While in emergency room she had paracentesis obtaining 6 L of peritoneal fluid. Blood work was concerning because of a potassium of 7.0 and at the time of patient's evaluation was being treated with calcium chloride, D50 and regular insulin. Also there was a concern about the possibility of renal involvement due to the cancer since both the BUN and creatinine had been steadily increasing. Our service was contacted for further evaluation initially as a consultation because there is no urology backup if she were to need any further intervention to treat renal failure. After talking to patient and obtaining information, both family and patient agreed for patient to be administer IV fluids, management of pain and to consult hospice so patient can at home. Past Medical History Cardiac Medical History: Denies: Coronary Artery Disease, Myocardial Infarction, Hypertension Pulmonary Medical History: Denies: Asthma, Bronchitis, Chronic Obstructive Pulmonary Disease (COPD), Pneumonia EENT Medical History: Reports: None Neurological Medical History: Reports: None Denies: Seizures Endocrine Medical History: Reports: Diabetes Mellitus Type 2 Malignancy Medical History: Reports: Ovarian Cancer Musculoskeltal Medical History: Denies: Arthritis Hematology: Reports: Anemia Past Surgical History Past Surgical History: Reports: Orthopedic Surgery - R foot; R knee Social History Information Source: Patient Lives with: Family Smoking Status: Never Smoker Frequency of Alcohol Use: None Hx Recreational Drug Use: No Drugs: None - Advance Directive Resuscitation Status: Do Not Resuscitate Family History Family History: Reviewed & Not Pertinent, DM, Hypertension Parental Family History Reviewed: Yes Children Family History Reviewed: Yes Sibling(s) Family History Reviewed.: Yes Medication/Allergy Home Medications: Lorazepam [Ativan 0.5 mg Tablet] 0.5 mg PO Q4 PRN 02/15/17 Oxycodone HCl [Oxycontin] 10 mg PO BID 02/15/17 Oxycodone HCl [Oxycodone HCl 10 MG Tablet] 10 mg PO Q4H PRN 11/17/17 Simethicone [Gas-X Ultra Strength] 1 tab PO Q6H PRN 11/17/17 Allergies/Adverse Reactions: No Known Allergies Allergy (Verified 11/01/17 12:14) Review of Systems Constitutional: PRESENT: anorexia, weakness Eyes: ABSENT: visual disturbances Ears: ABSENT: hearing changes Nose, Mouth, and Throat: ABSENT: mouth pain, sore throat Cardiovascular: ABSENT: chest pain, dyspnea on exertion, palpitations Gastrointestinal: PRESENT: abdominal pain, nausea, vomiting, other - Swelling of abdomen Genitourinary: ABSENT: dysuria, hematuria Musculoskeletal: PRESENT: back pain Neurological: PRESENT: weakness. ABSENT: focal weakness Psychiatric: PRESENT: depression Physical Exam Vital Signs: Temp Pulse Resp BP Pulse Ox 97.9 F 104 H 13 98/62 L 100 11/17/17 09:59 11/17/17 10:33 11/17/17 14:01 11/17/17 14:00 11/17/17 14:01 Intake & Output 11/16/17 11/17/17 11/18/17 06:59 06:59 06:59 Weight 72 kg General appearance: PRESENT: cooperative - Ill looking appereance, thin, other Head exam: PRESENT: atraumatic, normocephalic Eye exam: PRESENT: conjunctiva pale, EOMI, PERRLA, other - Sunken eyelids Mouth exam: PRESENT: dry mucosa, neck supple Neck exam: PRESENT: full ROM. ABSENT: JVD, lymphadenopathy, tenderness Respiratory exam: PRESENT: clear to auscultation patricia Cardiovascular exam: PRESENT: RRR. ABSENT: diastolic murmur, systolic murmur Vascular exam: PRESENT: pallor GI/Abdominal exam: PRESENT: ascites, guarding, soft, tenderness Extremities exam: PRESENT: full ROM, tenderness, +2 edema Musculoskeletal exam: ABSENT: ambulatory Neurological exam: PRESENT: alert, awake, oriented to person, oriented to place , oriented to time, oriented to situation, CN II-XII grossly intact Psychiatric exam: PRESENT: depressed Skin exam: PRESENT: pallor Results Laboratory Results: 11/17/17 10:23 11/17/17 10:23 11/17/17 11/17/17 11/17/17 10:15 10:15 10:15 WBC Cancelled RBC Cancelled Hgb Cancelled Hct Cancelled MCV Cancelled MCH Cancelled MCHC Cancelled RDW Cancelled Plt Count Cancelled Sodium Cancelled Potassium Cancelled Chloride Cancelled Carbon Dioxide Cancelled Anion Gap Cancelled BUN Cancelled Creatinine Cancelled Est GFR ( Amer) Cancelled Est GFR (Non-Af Amer) Cancelled Glucose Cancelled Calcium Cancelled Total Bilirubin Cancelled AST Cancelled ALT Cancelled Alkaline Phosphatase Cancelled Ammonia Cancelled Total Protein Cancelled Albumin Cancelled 11/17/17 11/17/17 11/17/17 10:23 10:23 10:23 WBC 15.7 H RBC 3.54 L Hgb 10.1 L Hct 31.7 L MCV 89 D MCH 28.7 MCHC 32.1 RDW 24.0 H Plt Count 198 Sodium 131.0 L Potassium 7.2 H* Chloride 100 Carbon Dioxide 16 L Anion Gap 15 BUN 62 H Creatinine 3.13 H Est GFR ( Amer) 18 L Est GFR (Non-Af Amer) 15 L Glucose 86 Calcium 8.8 Total Bilirubin 0.6 AST 91 H ALT 22 Alkaline Phosphatase 120 Ammonia < 8.7 L Total Protein 5.6 L Albumin 2.7 L Impressions: Chest X-Ray 11/17/17 10:16 IMPRESSION: Stable appearance from the CT scan. Small loculated central fluid collection on the left in the pleural space. Abdomen X-Ray 11/17/17 12:01 IMPRESSION: NO RADIOGRAPHIC EVIDENCE FOR ACUTE ABDOMINAL DISEASE. Assessment & Plan - Diagnosis (1) DAVE (acute kidney injury) Is this a current diagnosis for this admission?: Yes Plan: Likely compounded due to volume contraction and obstruction of ureters by ascitic fluid. Will order 1 L normal saline 1 open and will continue with hydration.. Will try to minimize trending in order to prevent pain (2) Ascites Qualifiers: Ascites type: malignant Qualified Code(s): R18.0 - Malignant ascites Is this a current diagnosis for this admission?: Yes Plan: Patient had removal of 6 liters while in ED. Patient and family made aware may reaccumulate rapidly. Patient to be placed on Rocephin IV. (3) Hyperkalemia Is this a current diagnosis for this admission?: Yes Plan: Patient had been on Aldactone on an outpatient setting which likely is contributing to hyperkalemia in the setting of volume contraction. While in ED patient was treated with D50, regular insulin and calcium chloride. A second dose of calcium chloride was ordered. To order Kayexalate. Requested follow-up BMP prior to calcium chloride. Floor nurse made aware patient is DO NOT RESUSCITATE and major aim will be to control pain in the fluids (4) Malignant neoplasm metastatic to ovary Qualifiers: Laterality: unspecified laterality Qualified Code(s): C79.60 - Secondary malignant neoplasm of unspecified ovary Is this a current diagnosis for this admission?: Yes Plan: To place patient on fentanyl patch, fentanyl IV and oxycodone. We will consult case management for hospice. Had a lengthy conversation with family members about patient's medical condition which is deemed to be terminal. There were no agreement for patient to be DO NOT RESUSCITATE, to provide fluids, pain management and to consult hospice (5) Anemia Qualifiers: Anemia type: unspecified type Qualified Code(s): D64.9 - Anemia, unspecified Is this a current diagnosis for this admission?: Yes Plan: Due to chronic disease (6) Diabetes Qualifiers: Diabetes mellitus type: type 2 Diabetes mellitus senior care insulin use: unspecified termite technician insulin use status Diabetes mellitus complication status : with unspecified complications Qualified Code(s): E11.8 - Type 2 diabetes mellitus with unspecified complications Is this a current diagnosis for this admission?: Yes Plan: Will not pursue aggressive management since patient has terminal ovarian cancer (7) Hyponatremia Is this a current diagnosis for this admission?: Yes Plan: Patient will be administered fluids since likely due to volume contraction (8) Metabolic acidosis Is this a current diagnosis for this admission?: Yes Plan: Likely due to hyperperfusion patient will be administer fluids and follow - Time Time Spent: 50 to 70 Minutes Medications reviewed and adjusted accordingly: Yes Anticipated discharge: Hospice Within: within 48 hours - Inpatient Certification Based on my medical assessment, after consideration of the patient's comorbidities, presenting symptoms, or acuity I expect that the services needed warrant INPATIENT care.: Yes I certify that my determination is in accordance with my understanding of Medicare's requirements for reasonable and necessary INPATIENT services [42 CFR 412.3e].: Yes Medical Necessity: Need Close Monitoring Due to Risk of Patient Decompensation, Need for Pain Control, Need for IV Antibiotics
[2017-11-17 18:31] LABS: ANION GAP 10 (5-19); BLOOD UREA NITROGEN 59 mg/dL (7-20); CALCIUM 8.6 mg/dL (8.4-10.2); CARBON DIOXIDE 17 mmol/L (22-30); CHLORIDE 104 mmol/L (98-107); GLUCOSE 74 mg/dL (75-110); SODIUM 131.2 mmol/L (137-145)
[2017-11-17 18:34] LABS: POTASSIUM 6.5 mmol/L (3.6-5.0)
[2017-11-17] MEDS ORDERED: NORMAL SALINE 1000 ML 1,000 ML IV ONE (18:43)
[2017-11-17] MEDS: ALBUTEROL SULFATE 0.083% NEB 2.5 MG/3 ML AMPUL NEB SCH (20:18)
[2017-11-17] MEDS ORDERED: CEFTRIAXONE INJ 1000 MG VIAL ONE (20:22)
[2017-11-17] MEDS ORDERED: OLANZAPINE INJ/PF 10 MG SDV IM ONE (20:22)
[2017-11-17] MEDS ORDERED: OLANZAPINE 2.5 MG TABLET ONE (20:38)
[2017-11-17] MEDS ORDERED: ZOLPIDEM TARTRATE 5 MG TABLET PO PRN (22:00)
[2017-11-17] MEDS: HEPARIN SOD (PORCINE) 5,000 UNIT/ML 1 ML SYRINGE SUBCUT SCH (22:47)
[2017-11-17] MEDS: OLANZAPINE 2.5 MG TABLET PO SCH (22:51)
[2017-11-18 00:57] LABS: ANION GAP 9 (5-19); BLOOD UREA NITROGEN 59 mg/dL (7-20); CALCIUM 8.8 mg/dL (8.4-10.2); CARBON DIOXIDE 15 mmol/L (22-30); CHLORIDE 108 mmol/L (98-107); GLUCOSE 73 mg/dL (75-110); SODIUM 131.6 mmol/L (137-145)
[2017-11-18 01:15] LABS: POTASSIUM 6.3 mmol/L (3.6-5.0)
[2017-11-18] MEDS ORDERED: SODIUM BICARBONATE 8.4% INJ 50 MEQ/50 ML DISP.SYRIN IV ONE (03:30)
[2017-11-18] MEDS ORDERED: CALCIUM GLUCONATE 1,000 MG in DEXTROSE 5%-WATER 50 ML IV ONE ×2 (03:30→05:15)
[2017-11-18] MEDS ORDERED: DEXTROSE 50%-WATER 25 GM/50 ML DISP.SYRIN IV ONE ×3 (03:30→09:30)
[2017-11-18] MEDS ORDERED: SODIUM POLYSTYRENE SULFONATE 15 GM/60 ML PO ONE ×2 (03:30→15:00)
[2017-11-18] MEDS: FENTANYL CITRATE INJ/PF 100 MCG/2 ML AMPUL IV PRN (03:52)
[2017-11-18] MEDS ORDERED: INSULIN REG, HUMAN 100 UNIT/ML 3 ML VIAL (PYX) IV ONE ×2 (04:00→08:00)
[2017-11-18] MEDS ORDERED: CALCIUM GLUCONATE 1000 MG/10 ML INJ IV ONE ×2 (05:00→05:15)
[2017-11-18] MEDS: HEPARIN SOD (PORCINE) 5,000 UNIT/ML 1 ML SYRINGE SUBCUT SCH ×2 (05:09→13:42)
[2017-11-18] MEDS: NORMAL SALINE 1000 ML 1,000 ML IV PRN (05:13)
[2017-11-18 07:22] LABS: ANION GAP 15 (5-19); BLOOD UREA NITROGEN 57 mg/dL (7-20); CALCIUM 9.2 mg/dL (8.4-10.2); CARBON DIOXIDE 12 mmol/L (22-30); CHLORIDE 105 mmol/L (98-107); GLUCOSE 78 mg/dL (75-110)
[2017-11-18 07:36] LABS: POTASSIUM 5.4 mmol/L (3.6-5.0)
[2017-11-18] MEDS: ALBUTEROL SULFATE 0.083% NEB 2.5 MG/3 ML AMPUL NEB SCH ×4 (08:21→20:01)
[2017-11-18] MEDS ORDERED: CALCIUM GLUCONATE 2,222 MG in DEXTROSE 5%-WATER 100 ML IV ONE (08:30)
[2017-11-18] MEDS ORDERED: OXYCODONE HCL IR 5 MG TABLET PO PRN (08:31)
[2017-11-18] MEDS: OXYCODONE HCL SR 10 MG TABLET PO SCH ×2 (09:37→21:06)
[2017-11-18] MEDS: OLANZAPINE 2.5 MG TABLET PO SCH ×2 (09:38→17:41)
[2017-11-18] MEDS ORDERED: FENTANYL 100 MCG/HR PATCH.TD72 TD SCH (10:00)
--- NOTE | 2017-11-18 12:32 | RADIOLOGY REPORT (SQ) ---
EXAM DESCRIPTION: VENOUS UNILATERAL LOWER COMPLETED DATE/TIME: 11/18/2017 12:23 pm REASON FOR STUDY: RLE swelling COMPARISON: None. TECHNIQUE: Dynamic and static mcadams scale and color images acquired of the right leg venous system. S elected spectral images acquired with additional compression and augmentation maneuvers. The contrala teral common femoral vein and saphenofemoral junction were also imaged. Images stored on PACS. LIMITATIONS: None. FINDINGS: COMMON FEMORAL: Nonocclusive thrombus. FEMORAL: Nonocclusive thrombus. POPLITEAL: Nonocclusive thrombus. CALF VESSELS: Nonocclusive thrombus posterior tibial vein. GSV and SSV: Normal compression, augmentation. No visualized echogenic material on mcadams scale. No def ects on color images. ANY DEEP VENOUS INSUFFICIENCY: Not evaluated. ANY EVIDENCE OF POPLITEAL CYST: No. OTHER: No other significant finding. CONTRALATERAL COMMON FEMORAL VEIN AND SAPHENOFEMORAL JUNCTION: Normal phasicity, compression and augmentation. No visualized echogenic material on mcadams scale. No de fects on color images. IMPRESSION: Positive for acute deep vein thrombosis. TECHNICAL DOCUMENTATION: JOB ID: [id number] [employer]- All Rights Reserved Reading location - IP/workstation name: [facility] [[email or web address]]
--- NOTE | 2017-11-18 13:31 | Progress Note ---
Provider Note Provider Note: Had extensive talk with daughters after obtaining abnormal venous Doppler studies of right lower extremity. Did show extensive DVT of the right lower extremity as expected. They have been aware including patient that if confirming the treatment would be injectable medication in her abdomen. Discussed with daughters and order alternative which I discouraged which will be an IVC filter since may promote clot formation. It appears that patient would like to go home. Encourage daughter's weight to talk to hospice in order to coordinate her needs once she gets discharged and may take another 24 hours. [employer] hosp[employer] sales representative [employer] was in the area and introduced her to the daughters
--- NOTE | 2017-11-18 13:45 | PDOC PROGRESS REPORT ---
Subjective Progress Note for:: 11/18/17 Subjective:: Patient states that pain is some better. Family is concerned about swelling of the leg and we have discussed already since admission and likely relates to a blood clot. Review of systems All organ systems evaluated and negative except as subjective All laboratories and significant diagnostics have been reviewed Reason For Visit: DAVE HYPERKALEMIA ANASARCA METASTATIC OVARIAN Physical Exam Vital Signs: Temp Pulse Resp BP Pulse Ox 99.1 F 104 H 18 92/67 L 99 11/17/17 23:32 11/17/17 23:32 11/17/17 23:32 11/17/17 23:32 11/17/17 23:32 Intake & Output 11/17/17 11/18/17 11/19/17 06:59 06:59 06:59 Intake Total 200 Output Total 350 Balance -150 Weight 69.7 kg General appearance: PRESENT: no acute distress, cooperative, thin Head exam: PRESENT: atraumatic, normocephalic Eye exam: PRESENT: conjunctiva pink, EOMI, PERRLA Mouth exam: PRESENT: moist Neck exam: PRESENT: full ROM. ABSENT: JVD, lymphadenopathy, tenderness Respiratory exam: PRESENT: clear to auscultation patricia Cardiovascular exam: PRESENT: RRR. ABSENT: diastolic murmur, systolic murmur Vascular exam: PRESENT: pallor GI/Abdominal exam: PRESENT: ascites, normal bowel sounds, soft, tenderness Extremities exam: PRESENT: full ROM Musculoskeletal exam: ABSENT: ambulatory Neurological exam: PRESENT: alert, awake, oriented to person, oriented to place , oriented to time Skin exam: PRESENT: intact, pallor Results Laboratory Results: 11/17/17 11/18/17 17:45 00:30 Sodium 131.2 L 131.6 L Potassium 6.5 H* 6.3 H* Chloride 104 108 H Carbon Dioxide 17 L 15 L Anion Gap 10 9 BUN 59 H 59 H Creatinine 3.00 H 2.64 H Est GFR ( Amer) 19 L 22 L Est GFR (Non-Af Amer) 16 L 18 L Glucose 74 L 73 L Calcium 8.6 8.8 Impressions: Chest X-Ray 11/17/17 10:16 IMPRESSION: Stable appearance from the CT scan. Small loculated central fluid collection on the left in the pleural space. Abdomen X-Ray 11/17/17 12:01 IMPRESSION: NO RADIOGRAPHIC EVIDENCE FOR ACUTE ABDOMINAL DISEASE. Assessment & Plan - Diagnosis (1) DAVE (acute kidney injury) Is this a current diagnosis for this admission?: Yes Plan: Likely compounded due to volume contraction and obstruction of ureters by ascitic fluid. Continue IV fluids. Improving (2) Ascites Qualifiers: Ascites type: malignant Qualified Code(s): R18.0 - Malignant ascites Is this a current diagnosis for this admission?: Yes Plan: Patient had removal of 6 liters while in ED. Patient and family made aware may reaccumulate rapidly. Conitnue Rocephin IV. (3) Hyperkalemia Is this a current diagnosis for this admission?: Yes Plan: Patient had been on Aldactone on an outpatient setting which likely is contributing to hyperkalemia in the setting of volume contraction. 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 Awaiting hospice consultation. Consult Dr. Gerard (5) Anemia Qualifiers: Anemia type: unspecified type Qualified Code(s): D64.9 - Anemia, unspecified Is this a current diagnosis for this admission?: Yes Plan: Due to chronic disease (6) Diabetes Qualifiers: Diabetes mellitus type: type 2 Diabetes mellitus fdc insulin use: unspecified fdc insulin use status Diabetes mellitus complication status : with unspecified complications Qualified Code(s): E11.8 - Type 2 diabetes mellitus with unspecified complications Is this a current diagnosis for this admission?: Yes Plan: Will not pursue aggressive management since patient has terminal ovarian cancer. Patient states blood sugar did not need to be treated since lost some weight (7) Hyponatremia Is this a current diagnosis for this admission?: Yes Plan: Patient will be administered fluids since likely due to volume contraction. Persisting (8) Metabolic acidosis Is this a current diagnosis for this admission?: Yes Plan: Likely due to hyperperfusion. Persisting. - Time Time Spent with patient: 25-34 minutes Medications reviewed and adjusted accordingly: Yes Anticipated discharge: Hospice Within: within 24 hours - Inpatient Certification Based on my medical assessment, after consideration of the patient's comorbidities, presenting symptoms, or acuity I expect that the services needed warrant INPATIENT care.: Yes I certify that my determination is in accordance with my understanding of Medicare's requirements for reasonable and necessary INPATIENT services [42 CFR 412.3e].: Yes Medical Necessity: Need Close Monitoring Due to Risk of Patient Decompensation, Need For IV Fluids
--- NOTE | 2017-11-18 17:49 | PDOC CONSULTATION ---
Consultation Consult Date: 11/18/17 Consult reason:: Hematology/Oncology consultation was requested for patient with known metastatic ovarian cancer. History of Present Illness Admission Date/PCP: 11/17/17 16:12 History of Present Illness: ANURADHA DARLING is a 62 year old female Is a female who was brought into emergency room by family members and complains of generalized abdominal pain, nausea, vomiting and poor appetite. About 1 year ago she came to this facility and was diagnosed with stage IV ovarian cancer. She had been treated aggressively for this over the past few months, but sadly her cancer has continued to progress. Plans were to begin a new oral agent tomorrow. However , her symptoms have continued to worsen. While in emergency room she had paracentesis obtaining 6 L of peritoneal fluid. Blood work was concerning because of a potassium of 7.0 and at the time of patient's evaluation was being treated with calcium chloride, D50 and regular insulin. Also there was a concern about the possibility of renal involvement due to the cancer since both the BUN and creatinine had been steadily increasing. Her RLE has been swelling. US earlier shows evidence of acute DVT. Her Cr has improved somewhat with IV fluids, but EGFR is still <30. Today, she states that her pain is improved after the paracentesis and she continues to look forward to starting the new cancer medication. Family is at bedside and she has just been seen by Hospice as well. They are happy to admit her to home Hospice, but are unable to make all arrangements until Wed morning ( 2 days form now). Past Medical History Cardiac Medical History: Denies: Coronary Artery Disease, Myocardial Infarction, Hypertension Pulmonary Medical History: Denies: Asthma, Bronchitis, Chronic Obstructive Pulmonary Disease (COPD), Pneumonia EENT Medical History: Reports: None Neurological Medical History: Reports: None Denies: Seizures Endocrine Medical History: Reports: Diabetes Mellitus Type 2 Malignancy Medical History: Reports: Ovarian Cancer Musculoskeltal Medical History: Denies: Arthritis Psychiatric Medical History: Reports: Depression Hematology: Reports: Anemia Past Surgical History Past Surgical History: Reports: Orthopedic Surgery - R foot; R knee Social History Lives with: Family Smoking Status: Never Smoker Frequency of Alcohol Use: None Hx Recreational Drug Use: No Drugs: None Hx Prescription Drug Abuse: No - Advance Directive Resuscitation Status: Do Not Resuscitate Family History Family History: Reviewed & Not Pertinent, Other Parental Family History Reviewed: Yes Children Family History Reviewed: Yes Sibling(s) Family History Reviewed.: Yes Medication/Allergy Home Medications: Lorazepam [Ativan 0.5 mg Tablet] 0.5 mg PO Q4HP PRN 02/15/17 Oxycodone HCl [Oxycontin] 10 mg PO Q12 02/15/17 Oxycodone HCl [Oxycodone HCl 10 MG Tablet] 10 mg PO Q4HP PRN 11/17/17 Simethicone [Gas-X Ultra Strength] 180 mg PO Q6HP PRN 11/17/17 Allergies/Adverse Reactions: No Known Allergies Allergy (Verified 11/01/17 12:14) Review of Systems Constitutional: PRESENT: weight gain. ABSENT: fever(s), headache(s) Eyes: ABSENT: visual disturbances Ears: ABSENT: hearing changes Nose, Mouth, and Throat: ABSENT: headache(s) Cardiovascular: PRESENT: chest pain, edema Respiratory: ABSENT: cough Gastrointestinal: PRESENT: abdominal pain, bloating, other - Hiccups. Genitourinary: ABSENT: dysuria Integumentary: ABSENT: rash Neurological: PRESENT: confusion - thought to be due to meds., weakness. ABSENT : focal weakness, restless legs Psychiatric: ABSENT: hallucinations Physical Exam Vital Signs: Temp Pulse Resp BP Pulse Ox 99.3 F 97 18 102/65 95 11/18/17 11:34 11/18/17 16:21 11/18/17 16:21 11/18/17 11:34 11/18/17 16:21 Intake & Output 11/17/17 11/18/17 11/19/17 06:59 06:59 06:59 Intake Total 1900 500 Output Total 350 150 Balance 1550 350 Weight 69.7 kg General appearance: PRESENT: no acute distress, well-nourished Exam: 62 year old female. Lying comfortably in bed with family surrounding. Head exam: PRESENT: atraumatic Eye exam: PRESENT: PERRLA Mouth exam: PRESENT: moist, tongue midline Teeth exam: ABSENT: poor dentation Neck exam: ABSENT: lymphadenopathy, tenderness Respiratory exam: PRESENT: decreased breath sounds Cardiovascular exam: PRESENT: RRR GI/Abdominal exam: PRESENT: distended, soft, tenderness Extremities exam: PRESENT: +2 edema Musculoskeletal exam: PRESENT: normal inspection Neurological exam: PRESENT: alert, awake, oriented to person, oriented to place Psychiatric exam: PRESENT: other - Unable to answer some questions appropriately. Looks to family. Skin exam: PRESENT: pallor Results Laboratory Results: 11/18/17 06:35 11/17/17 11/18/17 11/18/17 17:45 00:30 06:35 Sodium 131.2 L 131.6 L 132.0 L Potassium 6.5 H* 6.3 H* 5.4 H Chloride 104 108 H 105 Carbon Dioxide 17 L 15 L 12 L Anion Gap 10 9 15 BUN 59 H 59 H 57 H Creatinine 3.00 H 2.64 H 2.58 H Est GFR ( Amer) 19 L 22 L 23 L Est GFR (Non-Af Amer) 16 L 18 L 19 L Glucose 74 L 73 L 78 Calcium 8.6 8.8 9.2 Impressions: Chest X-Ray 11/17/17 10:16 IMPRESSION: Stable appearance from the CT scan. Small loculated central fluid collection on the left in the pleural space. Abdomen X-Ray 11/17/17 12:01 IMPRESSION: NO RADIOGRAPHIC EVIDENCE FOR ACUTE ABDOMINAL DISEASE. Venous Doppler Study 11/18/17 00:00 IMPRESSION: Positive for acute deep vein thrombosis. Assessment & Plan - Diagnosis (1) Malignant neoplasm metastatic to ovary Qualifiers: Laterality: unspecified laterality Qualified Code(s): C79.60 - Secondary malignant neoplasm of unspecified ovary Is this a current diagnosis for this admission?: Yes Plan: I have sadly explained to the patient and the family that due to her cancer, her kidneys have now starting shutting down. It is no longer safe to give her the new chemotherapy due to the EGFR <30. I agree with Hospice and comfort measures only. (2) DAVE (acute kidney injury) Is this a current diagnosis for this admission?: Yes Plan: Most likely secondary to underlying malignancy. Although fluid resuscitation has helped some, she still has severe kidney failure. I do not believe this will be reversible. (3) Ascites Qualifiers: Ascites type: malignant Qualified Code(s): R18.0 - Malignant ascites Is this a current diagnosis for this admission?: Yes Plan: Improved after paracentesis. I have explained that further IV fluids will make the ascites return sooner. (4) DVT (deep venous thrombosis) Qualifiers: DVT location: lower extremity Chronicity: acute Laterality: right Is this a current diagnosis for this admission?: Yes Plan: We discussed this diagnosis and I have again explained that because of the renal failure, most of the medications used to treat this are not safe to use. I do not recommend starting any anticoagulation at this point. We discussed the fact that the swelling may get a little worse, but while she is on Hospice, they will help with these symptoms. - Plan Summary Plan Summary: I have explained to the patient and family that the cancer is too far advanced at this point and that I recommend going home with Hospice GURPREET. We discussed DNR status. She does not understand, but family is aware and will continue to work with her on this. She is currently DNR and comfort measures only. I will add baclofen for her hiccups an stop all lab draws. I will stop MIVF. I will see her again tomorrow morning. Please call me if needed.
[2017-11-18] MEDS: BACLOFEN 10 MG TABLET PO PRN (21:06)
[2017-11-18] MEDS: PROMETHAZINE HCL INJ 25 MG/1 ML VIAL IV PRN (23:54)
[2017-11-19] MEDS: PROMETHAZINE HCL INJ 25 MG/1 ML VIAL IV PRN ×2 (08:02→16:19)
--- NOTE | 2017-11-19 08:06 | PDOC PROGRESS REPORT ---
Subjective Progress Note for:: 11/19/17 Subjective:: Patient had 2 episodes of vomiting over night. Has been given phenergan with good relief. Family is at bedside and reports she had a good night. Reason For Visit: DAVE HYPERKALEMIA ANASARCA METASTATIC OVARIAN Physical Exam Vital Signs: Temp Pulse Resp BP Pulse Ox 97.7 F 97 16 104/67 97 11/18/17 23:21 11/18/17 23:21 11/18/17 23:21 11/18/17 23:21 11/18/17 23:21 Intake & Output 11/18/17 11/19/17 11/20/17 06:59 06:59 06:59 Intake Total 1900 720 Output Total 350 150 Balance 1550 570 Weight 69.7 kg General appearance: PRESENT: no acute distress Head exam: PRESENT: atraumatic Respiratory exam: PRESENT: clear to auscultation patricia, unlabored Cardiovascular exam: PRESENT: RRR Extremities exam: PRESENT: +2 edema - Right leg only. Neurological exam: PRESENT: alert, awake Psychiatric exam: PRESENT: other - Flat affect Skin exam: PRESENT: pallor Results Laboratory Results: 11/18/17 06:35 Impressions: Chest X-Ray 11/17/17 10:16 IMPRESSION: Stable appearance from the CT scan. Small loculated central fluid collection on the left in the pleural space. Abdomen X-Ray 11/17/17 12:01 IMPRESSION: NO RADIOGRAPHIC EVIDENCE FOR ACUTE ABDOMINAL DISEASE. Venous Doppler Study 11/18/17 00:00 IMPRESSION: Positive for acute deep vein thrombosis. Assessment & Plan - Diagnosis (1) Malignant neoplasm metastatic to ovary Qualifiers: Laterality: unspecified laterality Qualified Code(s): C79.60 - Secondary malignant neoplasm of unspecified ovary Is this a current diagnosis for this admission?: Yes (2) DAVE (acute kidney injury) Is this a current diagnosis for this admission?: Yes (3) Ascites Qualifiers: Ascites type: malignant Qualified Code(s): R18.0 - Malignant ascites Is this a current diagnosis for this admission?: Yes (4) DVT (deep venous thrombosis) Qualifiers: DVT location: lower extremity Chronicity: acute Laterality: right Is this a current diagnosis for this admission?: Yes - Plan Summary Plan Summary: Continue comfort measures only. Plan to go home with Hospice tomorrow morning. No changes today. Patient and family comfortable.
[2017-11-19] MEDS: ALBUTEROL SULFATE 0.083% NEB 2.5 MG/3 ML AMPUL NEB SCH ×4 (08:34→20:29)
[2017-11-19] MEDS: OLANZAPINE 2.5 MG TABLET PO SCH ×2 (09:59→18:22)
[2017-11-19] MEDS: BACLOFEN 10 MG TABLET PO PRN (09:59)
[2017-11-19] MEDS ORDERED: LEVOFLOXACIN 500 MG TABLET PO SCH (10:00)
[2017-11-19] MEDS: OXYCODONE HCL SR 10 MG TABLET PO SCH ×2 (10:00→21:11)
[2017-11-19] MEDS ORDERED: MORPHINE SULFATE 10 MG/ML INJ IV PRN (10:24)
[2017-11-19] MEDS: FENTANYL CITRATE INJ/PF 100 MCG/2 ML AMPUL IV PRN ×3 (11:03→21:23)
[2017-11-19] MEDS: PROMETHAZINE HCL INJ 25 MG/1 ML VIAL IV SCH ×2 (13:40→21:23)
--- NOTE | 2017-11-19 18:11 | PDOC PROGRESS REPORT ---
Subjective Progress Note for:: 11/19/17 Subjective:: 62 yo with stage 4 Ovarian cancer, progressing with abdominal pain, ascites, nausea and vomiting. Patient was sedated this AM. Complains of nausea and vomiting this AM. Will schedule some Phenergan dosing on this patient. Oncology following. Family in agreement with Home hospice. I spoke with relations coordinator and they will be ready for patient to discharge home tomorrow. Reason For Visit: DAVE HYPERKALEMIA ANASARCA METASTATIC OVARIAN Physical Exam Vital Signs: Temp Pulse Resp BP Pulse Ox 97.7 F 97 16 104/67 97 11/18/17 23:21 11/18/17 23:21 11/18/17 23:21 11/18/17 23:21 11/18/17 23:21 Intake & Output 11/18/17 11/19/17 11/20/17 06:59 06:59 06:59 Intake Total 1900 720 Output Total 350 150 Balance 1550 570 Weight 69.7 kg General appearance: PRESENT: mild distress Head exam: PRESENT: atraumatic, normocephalic Eye exam: PRESENT: EOMI, PERRLA Ear exam: PRESENT: normal external ear exam. ABSENT: bleeding Mouth exam: PRESENT: moist, neck supple Throat exam: ABSENT: tonsillar erythema, tonsillar exudate Neck exam: PRESENT: full ROM. ABSENT: JVD Respiratory exam: ABSENT: accessory muscle use, prolonged expiratory phas, rales , rhonchi, wheezes Cardiovascular exam: PRESENT: RRR, +S1, +S2 Pulses: PRESENT: normal radial pulses, +1 pedal pulses bilateral Vascular exam: PRESENT: normal capillary refill. ABSENT: pallor GI/Abdominal exam: PRESENT: ascites, normal bowel sounds, soft, tenderness. ABSENT: rigid Extremities exam: PRESENT: pedal edema. ABSENT: calf tenderness Musculoskeletal exam: PRESENT: full ROM. ABSENT: tenderness Neurological exam: PRESENT: altered. ABSENT: alert, awake Psychiatric exam: ABSENT: agitated, anxious Focused psych exam: ABSENT: delusional, euphoric, restlessness Skin exam: ABSENT: abrasion, cyanosis, pallor, petechiae Results Laboratory Results: 11/18/17 06:35 Impressions: Chest X-Ray 11/17/17 10:16 IMPRESSION: Stable appearance from the CT scan. Small loculated central fluid collection on the left in the pleural space. Abdomen X-Ray 11/17/17 12:01 IMPRESSION: NO RADIOGRAPHIC EVIDENCE FOR ACUTE ABDOMINAL DISEASE. Venous Doppler Study 11/18/17 00:00 IMPRESSION: Positive for acute deep vein thrombosis. Assessment & Plan - Time Time Spent with patient: Less than 15 minutes - Inpatient Certification Based on my medical assessment, after consideration of the patient's comorbidities, presenting symptoms, or acuity I expect that the services needed warrant INPATIENT care.: Yes Medical Necessity: Need for Pain Control - Plan Summary Plan Summary: (1) Malignant neoplasm metastatic to ovary Continue fentanyl patch, fentanyl IV and oxycodone. unfortunate progressive course of stage 4 ovarian malignancy followed by Dr. Gerard family agrees to home [id number] and DNR status at present comfort care (2) DAVE (acute kidney injury) supportive care, given her hospice status (2) Ascites Patient had removal of 6 liters while in ED. family is aware that the fluid will likely re-accumulate. (3) Hyperkalemia improved after stopping aldactone. holding diuretics for now. comfort measures. (5) Anemia agree, this is likely secondary to chronic disease (6) Diabetes agree, no current treatment needed (7) Hyponatremia improved, monitor off fluids now. (8) Metabolic acidosis continues likely secondary to hypoperfusion.
[2017-11-20] MEDS: FENTANYL CITRATE INJ/PF 100 MCG/2 ML AMPUL IV PRN ×3 (00:52→07:35)
[2017-11-20] MEDS: PROMETHAZINE HCL INJ 25 MG/1 ML VIAL IV SCH (05:15)
[2017-11-20 07:59] VITALS: BP 100/56
[2017-11-20] MEDS: ALBUTEROL SULFATE 0.083% NEB 2.5 MG/3 ML AMPUL NEB SCH (08:02)
--- NOTE | 2017-11-20 08:09 | PDOC PROGRESS REPORT ---
Subjective Progress Note for:: 11/20/17 Subjective:: Patient opens her eyes and smiles, but does not communicate further. Family is at bedside. They are happy for plans of discharge today. They report patient has been sleeping on and off and using pain medication. Reason For Visit: DAVE HYPERKALEMIA ANASARCA METASTATIC OVARIAN Physical Exam Vital Signs: Temp Pulse Resp BP Pulse Ox 97.7 F 97 16 100/56 L 97 11/20/17 07:57 11/20/17 07:57 11/20/17 07:57 11/20/17 07:57 11/20/17 07:57 Intake & Output 11/19/17 11/20/17 11/21/17 06:59 06:59 06:59 Intake Total 720 Output Total 150 Balance 570 General appearance: PRESENT: no acute distress Extremities exam: PRESENT: +2 edema - RLE - unchanged. Neurological exam: PRESENT: awake. ABSENT: oriented to person, oriented to place, oriented to time, oriented to situation Skin exam: PRESENT: normal color Results Laboratory Results: 11/18/17 06:35 Impressions: Chest X-Ray 11/17/17 10:16 IMPRESSION: Stable appearance from the CT scan. Small loculated central fluid collection on the left in the pleural space. Abdomen X-Ray 11/17/17 12:01 IMPRESSION: NO RADIOGRAPHIC EVIDENCE FOR ACUTE ABDOMINAL DISEASE. Venous Doppler Study 11/18/17 00:00 IMPRESSION: Positive for acute deep vein thrombosis. Assessment & Plan - Diagnosis (1) Malignant neoplasm metastatic to ovary Qualifiers: Laterality: unspecified laterality Qualified Code(s): C79.60 - Secondary malignant neoplasm of unspecified ovary Is this a current diagnosis for this admission?: Yes (2) DAVE (acute kidney injury) Is this a current diagnosis for this admission?: Yes (3) Ascites Qualifiers: Ascites type: malignant Qualified Code(s): R18.0 - Malignant ascites Is this a current diagnosis for this admission?: Yes (4) DVT (deep venous thrombosis) Qualifiers: DVT location: lower extremity Chronicity: acute Laterality: right Is this a current diagnosis for this admission?: Yes - Plan Summary Plan Summary: Home with Hospice today. I have reassured the family that port will be de- accessed and she will continue to have the duragesic patch as well as PO medications that should be easily administered for pain and nausea if needed. Hospice will help with this. Follow-up with me PRN via Hospice.
--- NOTE | 2017-11-20 20:44 | PDOC DISCHARGE SUMMARY ---
General - Admit/Disc Date/PCP Admission Date/Primary Care Provider: 11/17/17 16:12 Discharge Date: 11/20/17 - Discharge Diagnosis (1) Carcinoma of ovary, stage 4 Is this a current diagnosis for this admission?: Yes (2) DAVE (acute kidney injury) Is this a current diagnosis for this admission?: Yes (3) Anemia Is this a current diagnosis for this admission?: Yes (4) Ascites Is this a current diagnosis for this admission?: Yes (5) Diabetes Is this a current diagnosis for this admission?: Yes (6) Hyperkalemia Is this a current diagnosis for this admission?: Yes (7) Metabolic acidosis Is this a current diagnosis for this admission?: Yes - Additional Information Resuscitation Status: Do Not Resuscitate Discharge Diet: As Tolerated Discharge Activity: Bedrest Prescriptions: Baclofen [Baclofen 10 mg Tablet] 10 mg PO TIDP PRN #15 tablet PRN Reason: Fentanyl [Duragesic 100 Mcg/Hr Transdermal Patch] 1 each TD Q3DAYS 3 Days #1 patch.td72 Ondansetron HCl [Zofran 4 mg Tablet] 1 - 2 tab PO Q4H PRN #20 tablet PRN Reason: Oxycodone HCl [Oxy-Ir 5 mg Tablet] 5 mg PO Q6HP PRN 5 Days #20 tablet PRN Reason: Oxycodone HCl [Oxycontin Sr 10 mg Tablet] 20 mg PO Q12 5 Days #10 tab.sr.12h Promethazine HCl [Phenergan 25 mg Supp.rect] 1 supp [place] Q6H #12 supp.rect Home Medications: Lorazepam [Ativan 0.5 mg Tablet] 0.5 mg PO Q4HP PRN 02/15/17 Simethicone [Gas-X Ultra Strength] 180 mg PO Q6HP PRN 11/17/17 Baclofen [Baclofen 10 mg Tablet] 10 mg PO TIDP PRN #15 tablet 11/20/17 Fentanyl [Duragesic 100 Mcg/Hr Transdermal Patch] 1 each TD Q3DAYS 3 Days #1 patch.td72 11/20/17 Ondansetron HCl [Zofran 4 mg Tablet] 1 - 2 tab PO Q4H PRN #20 tablet 11/20/17 Oxycodone HCl [Oxy-Ir 5 mg Tablet] 5 mg PO Q6HP PRN 5 Days #20 tablet 11/20/17 Oxycodone HCl [Oxycontin Sr 10 mg Tablet] 20 mg PO Q12 5 Days #10 tab.sr.12h Promethazine HCl [Phenergan 25 mg Supp.rect] 1 supp [place] Q6H #12 supp.rect History of Present Illness History of Present Illness: ANURADHA DARLING is a 62 year old female who was brought into emergency room by family members and complains of generalized abdominal pain, nausea, vomiting and poor appetite. Patient states that she had been seeing her regular doctor in [place]. She complained of lower abdominal pain and accordingly she was told that he related to old C-sections. Then a year ago she came to this facility and was diagnosed with stage IV ovarian cancer. She had been follow-up with Dr. Gerard. More recently she had been visited by hospice and she was to let them know about her thoughts pertaining current management. Currently patient is awaiting for a cancer pill and is to arrive via mail. While in emergency room she had paracentesis obtaining 6 L of peritoneal fluid. Blood work was concerning because of a potassium of 7.0 and at the time of patient's evaluation was being treated with calcium chloride, D50 and regular insulin. Also there was a concern about the possibility of renal involvement due to the cancer since both the BUN and creatinine had been steadily increasing. Our service was contacted for further evaluation initially as a consultation because there is no urology backup if she were to need any further intervention to treat renal failure. After talking to patient and obtaining information, both family and patient agreed for patient to be administer IV fluids, management of pain and to consult hospice so patient can at home. Hospital Course Hospital Course: Patient was treated with IV, PO and transdermal pain medicines to achieve comfort. She intermittantly displays nausea with vomiting. This was treated with phenergan. Abdomen remained tender, but improved in her overall discomfort after her therapeutic paracentesis. Discussions with her son at the bedside and her clarified the family's desires for her to return home with hospice care. Patient was made a DNR during this hospitalization. Patient is unfortunately not considered a candidate for further therapies in her progressive condition. Physical Exam Vital Signs: Temp Pulse Resp BP Pulse Ox 97.7 F 97 16 104/67 97 11/18/17 23:21 11/18/17 23:21 11/18/17 23:21 11/18/17 23:21 11/18/17 23:21 Intake & Output 11/18/17 11/19/17 11/20/17 06:59 06:59 06:59 Intake Total 1900 720 Output Total 350 150 Balance 1550 570 Weight 69.7 kg General appearance: PRESENT: no acute distress, obese Head exam: PRESENT: atraumatic, normocephalic Eye exam: PRESENT: EOMI, PERRLA Ear exam: PRESENT: normal external ear exam. ABSENT: bleeding Mouth exam: PRESENT: moist, neck supple Neck exam: ABSENT: JVD, tenderness Respiratory exam: ABSENT: accessory muscle use, crackles, rales, rhonchi Cardiovascular exam: PRESENT: RRR, +S1, +S2 Pulses: PRESENT: normal radial pulses, normal dorsalis pedis pul Vascular exam: PRESENT: normal capillary refill. ABSENT: pallor GI/Abdominal exam: PRESENT: ascites, normal bowel sounds, soft, tenderness. ABSENT: distended, firm, guarding, rebound, rigid Extremities exam: ABSENT: calf tenderness, joint swelling Musculoskeletal exam: PRESENT: full ROM. ABSENT: tenderness Neurological exam: PRESENT: altered, oriented to person Psychiatric exam: ABSENT: agitated, anxious Focused psych exam: ABSENT: catatonic, delusional Skin exam: ABSENT: abrasion, cyanosis Results Laboratory Results: 11/18/17 06:35 Impressions: Chest X-Ray 11/17/17 10:16 IMPRESSION: Stable appearance from the CT scan. Small loculated central fluid collection on the left in the pleural space. Abdomen X-Ray 11/17/17 12:01 IMPRESSION: NO RADIOGRAPHIC EVIDENCE FOR ACUTE ABDOMINAL DISEASE. Venous Doppler Study 11/18/17 00:00 IMPRESSION: Positive for acute deep vein thrombosis. Qualifiers - * PATEINT BEING DISCHARGED WITH ANY OF THE FOLLOWING DIAGNOSIS?: No VTE patient discharged on overlapping Therapy?: No Reason(s) for not prescribing Overlap Therapy:: Hospice Care Stroke Pt being discharged on Anti-thrombolytic therapy?: No Reason(s) for not prescribing Anti-thrombolytic therapy:: Hospice Care Stroke Pt being discharged on Anti-coagulation therapy?: No Reason(s) for not prescribing Anti-coagulation therapy:: Hospice Care Stroke Pt being discharged on Statins?: No Reason(s) for not prescribing Statins therapy:: Hospice Care MA Pt being discharged on Aspirin therapy?: No Reason(s) for not prescribing Aspirin therapy:: Hospice Care MA Pt being discharged on Statins?: No Reason(s) for not prescribing Statin therapy:: Hospice Care MA Pt discharged ACEI/ARBS?: No Reason(s) for not prescribing ACEI/ARBS:: Hospice Care Reason(s) for not prescribing ACEI:: Hospice Care Reason(s) for not prescribing ARBS:: Hospice Care Reason(s) for not prescribing Warfarin:: Hospice Care Reason(s) for not prescribing evidence-based Beta Mario:: Hospice Care Plan Discharge Plan: Stage 4 Ovarian Cancer, progressive decline: Patient will return home with the support of her family and Home Hospice. She will be given access to pain and nausea medications. Family was at the bedside of the patient prior to her discharge and was in agreement with this plan. The patient was sleepy, and without signs of significant discomfort. Time Spent: Greater than 30 Minutes
== END 2017-11-20 09:00 | disposition hospice, home (50) | DRG 683 ==
LOC: ER 09:51 → EH 16:12 → 4S 17:40
PROVIDERS: ADMIT Emergency Medicine; ATTEND Emergency Medicine
PROC: 0W9G3ZX Drainage of Peritoneal Cavity, Percutaneous Approach, Diagnostic (ICD-10-PCS; principal; 2017-11-17)
PROC: 3E0F73Z Introduction of Anti-inflammatory into Respiratory Tract, Via Natural or Artificial Opening (ICD-10-PCS; 2017-11-17)
DX: N17.9 Acute kidney failure, unspecified (principal); E87.2 Acidosis; R18.0 Malignant ascites; I82.401 Acute embolism and thrombosis of unspecified deep veins of right lower extremity; E87.1 Hypo-osmolality and hyponatremia; C79.60 Secondary malignant neoplasm of unspecified ovary; C78.7 Secondary malignant neoplasm of liver and intrahepatic bile duct; C78.00 Secondary malignant neoplasm of unspecified lung; C78.89 Secondary malignant neoplasm of other digestive organs; E11.8 Type 2 diabetes mellitus with unspecified complications; Z66 Do not resuscitate; E87.5 Hyperkalemia; F32.9 Major depressive disorder, single episode, unspecified; D63.8 Anemia in other chronic diseases classified elsewhere; Z79.899 Other long term (current) drug therapy; Z83.3 Family history of diabetes mellitus; Z82.49 Family history of ischemic heart disease and other diseases of the circulatory system
CPT/HCPCS: 36415; 71045; 74019; 80048; 80053; 82140; 85027; 87040; 93005; 93010; 93971; 94640; 96361; 96374; 96375; 96376; 99291; J0610; J0696; J1644; J1815; J2405; J2550; J2765; J3010; J3490; J7030